=== PATIENT | female | born 1940 | race Caucasian/White ===

== ENCOUNTER 2019-06-21 09:52 | Day surgery (SDC) | payer MEDICARE ==
[~2019-06-21] VITALS: Ht 154.9 cm; Wt 57.7 kg
[~2019-06-21 09:52] MED LIST: ALEN70TA74 PO; ASPI81TA33 PO; BALANCED SALT IRRIGATION SOLUTION 500ML BAG (FOR OR EYE MACHINE) As Ordered ONE; CEFUROXIME 1MG/0.1ML INTRACAMERAL INJ As Ordered ONE; DUOVISC (0.50ML VISCOAT/0.55ML PROVISC) OPHTH KIT As Ordered ONE; FLUTISP NARES; METO50TA7 PO; OFLOXACIN 0.3 % (OCUFLOX) OPTH SOL 5ML OS ONE; PHENYLEPHRINE 2.5% OPHTH SOL 2ML OS ONE; POVIDONE-IODINE 5% OPHTH PREP SOL 30ML As Ordered ONE; PROPARACAINE 0.5% OPHTH SOL 15ML OS ONE; SIMV20TA2 PO; TROPICAMIDE 1% OPHTH SOLN 2ML OS ONE
[2019-06-21] MEDS ORDERED: MIDAZOLAM INJ 2 MG/2 ML VIAL (J2250) As Ordered ONE (09:55)
[2019-06-21] MEDS ORDERED: fentaNYL 100 MCG/2 ML INJECTION (J3010) As Ordered ONE (09:55)
[2019-06-21] MEDS ORDERED: TRYPAN BLUE 0.06 % 2.25 ML OPHTH SYR (VISIONBLUE) As Ordered ONE ×2 (11:14→11:18)
[2019-06-21] MEDS ORDERED: LIDOCAINE 2% W/EPIN INJ 20ML **PRES FREE XX ONE (11:20)
[2019-06-21] MEDS ORDERED: DUOVISC (0.50ML VISCOAT/0.55ML PROVISC) OPHTH KIT As Ordered ONE (11:28)
[2019-06-21 12:05] VITALS: BP 149/69
--- NOTE | 2019-06-25 11:24 | RO ---
DATE OF PROCEDURE: 06/21/2019 PREOPERATIVE DIAGNOSIS: 1. Hypermature visually significant nuclear sclerotic cataract left eye. POSTOPERATIVE DIAGNOSIS: 1. Hypermature visually significant nuclear sclerotic cataract left eye. PROCEDURE: 1. Cataract extraction with use of phacoemulsification and placement of intraocular lens, AU00T0 23.0 D, left eye. SURGEON: David Cordoba DO SENIOR MATERIALS ANALYST: None. ANESTHESIA: Local with monitored anesthesia care (MAC). COMPLICATIONS: None. POSTOPERATIVE CONDITION: Stable. INDICATIONS FOR SURGERY: 1. Blurred vision affecting patients activities of daily living. DESCRIPTION OF PROCEDURE: The patient was seen in the preoperative area and properly identified. The correct operative eye was identified and marked. The patient received topical anesthetic, antibiotics, and topical dilating drops. The patient was then transferred to the operating room. The correct side was re-identified, and a time-out was performed. The eye was prepped and draped in a sterile fashion. The eyelids were isolated with Tegaderm tape, and the lids were held open with an adjustable speculum. A 1.0 mm paracentesis incision was made. Intraocular preservative-free Shugarcaine was then injected into the anterior chamber. Trypan blue was placed to stain the anterior capsule. Viscoelastic was then injected into the anterior chamber through the paracentesis. Using a 2.4 mm sharp-tipped keratome, the anterior chamber was entered via a temporal clear cornea incision. A continuous curvilinear capsulorrhexis was created with Utrata forceps. Hydrodissection was performed with balanced salt solution (BSS) on a blunt cannula until the nucleus was able to rotate freely. The crystalline lens was phacoemulsified and aspirated. Irrigation/aspiration was used to remove the cortical material. Cohesive viscoelastic was placed into the capsular bag to deepen it. The implant was placed into the capsular bag and allowed to unfold. Placement was confirmed by visualizing the anterior capsulorrhexis. Irrigation/aspiration was used to remove the viscoelastic. The clear corneal incision was hydrated with BSS on a blunt cannula. The lens was well positioned. The incisions were then tested for leaks and found to be negative. The eye was then palpated for appropriate pressure and adjusted accordingly with BSS. The eyelid speculum was then carefully removed. A shield was placed over the eye. The patient tolerated the procedure well and was discharged to the recovery unit in a stable condition. [facility]ITAL[facility]andra
== END 2019-06-21 12:15 | disposition home or self-care (01) ==
LOC: M SDC 09:52
PROVIDERS: ATTEND Ophthalmology
DX: H25.12 Age-related nuclear cataract, left eye (principal); I10 Essential (primary) hypertension; I25.2 Old myocardial infarction; E78.5 Hyperlipidemia, unspecified; Z87.891 Personal history of nicotine dependence; Z79.82 Long term (current) use of aspirin; Z79.899 Other long term (current) drug therapy
CPT/HCPCS: 66984; J2250; J3010; V2632

== ENCOUNTER → 2019-08-06 | Outpatient (REF) | payer MEDICARE ==
[~2019-08-06] MED LIST changes: -BALANCED SALT IRRIGATION SOLUTION 500ML BAG (FOR OR EYE MACHINE) As Ordered ONE; -CEFUROXIME 1MG/0.1ML INTRACAMERAL INJ As Ordered ONE; -DUOVISC (0.50ML VISCOAT/0.55ML PROVISC) OPHTH KIT As Ordered ONE; -OFLOXACIN 0.3 % (OCUFLOX) OPTH SOL 5ML OS ONE; -PHENYLEPHRINE 2.5% OPHTH SOL 2ML OS ONE; -POVIDONE-IODINE 5% OPHTH PREP SOL 30ML As Ordered ONE; -PROPARACAINE 0.5% OPHTH SOL 15ML OS ONE; -TROPICAMIDE 1% OPHTH SOLN 2ML OS ONE
[2019-08-06 12:19] LABS: BASO # 0.1 10^3/uL (0.0-0.2); BASO % 0.4 % (0.0-1.0); EOS # 0.2 10^3/uL (0.0-0.5); EOS % 1.1 % (0.0-3.0); HEMATOCRIT 42.2 % (36.0-47.0); HEMOGLOBIN 12.8 g/dl (12.0-15.5); LYMPH # 1.3 10^3/uL (1.5-5.0); LYMPH % 8.6 % (24.0-44.0); MEAN CORPUSCULAR HEMOGLOBIN 26.3 pg (27.0-33.0); MEAN CORPUSCULAR HGB CONC 30.3 g/dl (32.0-36.5); MEAN CORPUSCULAR VOLUME 86.8 fl (80.0-96.0); MONO % 6.8 % (0.0-5.0); NEUTROPHILS # 12.3 10^3/uL (1.5-8.5); NEUTROPHILS % 82.6 % (36.0-66.0); PLATELET COUNT, AUTOMATED 286 10^3/uL (150-450); RED BLOOD COUNT 4.86 10^6/uL (4.00-5.40); WHITE BLOOD COUNT 14.9 10^3/uL (4.0-10.0)
[2019-08-06 12:36] LABS: ALBUMIN 3.2 GM/DL (3.2-5.2); ALT/SGPT 13 U/L (12-78); BILIRUBIN,TOTAL 0.5 MG/DL (0.2-1.0); BLOOD UREA NITROGEN 16 MG/DL (7-18); CALCIUM LEVEL 8.7 MG/DL (8.8-10.2); CARBON DIOXIDE LEVEL 27 MEQ/L (21-32); CHLORIDE LEVEL 106 MEQ/L (98-107); CREATININE FOR GFR 0.81 MG/DL (0.55-1.30); GLOMERULAR FILTRATION RATE > 60.0 (>39); GLUCOSE, FASTING 89 MG/DL (70-100); POTASSIUM SERUM 4.7 MEQ/L (3.5-5.1); SODIUM LEVEL 139 MEQ/L (136-145); TOTAL PROTEIN 6.4 GM/DL (6.4-8.2)
== END ==
LOC: M LABDRWAD 11:17
PROVIDERS: ATTEND Physician Assistant
DX: R10.814 Left lower quadrant abdominal tenderness (principal)

== ENCOUNTER → 2019-10-19 | Outpatient (CLI) | payer MEDICARE ==
[~2019-10-19] MED LIST changes: -SIMV20TA2 PO; +SIMV20TA22 PO
--- NOTE | 2019-10-19 10:33 | REP ---
Clinical: Abnormal lung findings. Technique: Axial noncontrast images from the thoracic inlet to the upper abdomen with coronal and sagittal re-formations. Comparison: None available. Findings: There is a 2.5 cm mass in the left lower lobe with spiculated margins and adjacent satellite nodules as well as 9 mm nodule in the deep left sulcus. Small area of scarring at the lingula and likely chronic atelectasis involving the right middle lobe. Evaluation for adenopathy is limited due to the lack of contrast enhancement. No effusion. No pneumothorax. Atherosclerotic changes to the thoracic aorta and coronary arteries noted without aortic aneurysm or cardiomegaly. No pericardial effusion. Tracheobronchial tree is patent. Osseous structures are intact and without focal abnormality Impression: 1. 2.5 cm mass in the left lower lobe with small adjacent satellite nodules and deep 9 mm nodule. Findings require further investigation and must be considered neoplastic unless proven otherwise. Electronically Signed by Jeffery Hansen MD 10/19/2019 10:24 A
== END ==
LOC: M RAD 09:17
PROVIDERS: ATTEND Internal Medicine Pulmonary Disease
DX: R91.8 Other nonspecific abnormal finding of lung field (principal)

== ENCOUNTER 2019-10-24 05:59 | Day surgery (SDC) | payer MEDICARE ==
[~2019-10-24] VITALS: Ht 157.5 cm; Wt 60.7 kg
[2019-10-24] MEDS ORDERED: LR 1,000 ML IV ONE (07:00)
[2019-10-24] MEDS ORDERED: ROCURONIUM BROMIDE 50 MG/5 ML VIAL As Ordered ONE (07:06)
[2019-10-24] MEDS ORDERED: LIDOCAINE 2% INJ 100 MG/5 ML SDV (FOR ANES.) As Ordered ONE (07:06)
[2019-10-24] MEDS ORDERED: SUGAMMADEX SODIUM 500 MG/5 ML VIAL (BRIDION) As Ordered ONE (07:06)
[2019-10-24] MEDS ORDERED: dexameTHASONE 4 MG/ML 1ML VIAL (J1100) As Ordered ONE (07:06)
[2019-10-24] MEDS ORDERED: PROPOFOL 200 MG/20 ML VIAL As Ordered ONE (07:06)
[2019-10-24] MEDS ORDERED: ONDANSETRON 4MG/2ML VIAL (J2405) As Ordered ONE (07:06)
[2019-10-24] MEDS ORDERED: fentaNYL 100 MCG/2 ML INJECTION (J3010) As Ordered ONE (07:07)
[2019-10-24] MEDS ORDERED: MIDAZOLAM INJ 2 MG/2 ML VIAL (J2250) As Ordered ONE (07:07)
[2019-10-24] MEDS ORDERED: EPINEPHrine 1MG/10ML SYRINGE 1.5IN As Ordered ONE (07:16)
[2019-10-24] MEDS ORDERED: LIDOCAINE VISCOUS 2% SOLN 15ML UDC As Ordered ONE (07:16)
[2019-10-24] MEDS ORDERED: CETACAINE SPRAY 5GM As Ordered ONE (07:16)
[2019-10-24] MEDS ORDERED: THROMBIN SOLN 5,000 UNITS VIAL As Ordered ONE (07:16)
[2019-10-24] MEDS ORDERED: LIDOCAINE 1% SDV INJ 30 ML VIAL As Ordered ONE (07:16)
[2019-10-24] MEDS ORDERED: ePHEDrine SULFATE 25 MG/5 ML(5MG/ML) SYRINGE As Ordered ONE (08:12)
[2019-10-24] MEDS ORDERED: PHENYLephrine HCL 500 MCG/5 ML (100MCG/ML) SYRINGE (J2370) As Ordered ONE (08:12)
[2019-10-24] MEDS ORDERED: ONDANSETRON 4MG/2ML VIAL (J2405) IV PRN (08:45)
[2019-10-24] MEDS ORDERED: LR 1,000 ML IV SCH (08:45)
[2019-10-24] MEDS ORDERED: oxyCODONE 5MG TAB PO PRN (08:45)
[2019-10-24] MEDS ORDERED: fentaNYL 100 MCG/2 ML INJECTION (J3010) IV PRN (08:45)
--- NOTE | 2019-10-24 08:57 | REP ---
Single view chest: 10/24/2019. Indication: Postprocedural assessment. Bronchoscopy. Comparison: 10/19/2019. Findings: There is no pneumothorax or significant pleural effusion. The left lower lobe mass is better demonstrated on the recent CT. The cardiac silhouette is unremarkable. Impression: Expected post procedural chest. No pneumothorax. Electronically Signed by Santos Corona DO 10/24/2019 08:49 A
--- NOTE | 2019-10-24 09:19 | RO ---
DATE OF PROCEDURE: 10/24/2019 PREOPERATIVE DIAGNOSIS: Left lower lobe lesion, abnormal chest CT. POSTPROCEDURE DIAGNOSIS: Left lower lobe lesion, abnormal chest CT. FINDINGS: Smoker's airways. PROCEDURE: Bronchoscopy with electromagnetic navigation. SURGEON: Dr. Lorenzo Mcfarlane. ANESTHESIA: General. Please refer to their records for details. SPECIMENS OBTAINED: 1. Cyto needle brush left lower lobe. 2. Transbronchial forceps biopsies left lower lobe. 3. GenCut fine needle aspiration (FNA) left lower lobe. 4. Bronchioalveolar lavage (BAL) left lower lobe. DESCRIPTION OF PROCEDURE: After informed consent was reviewed with the patient in the preoperative area, she was brought back to OR #8, which is a pre-mapped room. General anesthesia was initiated and the case was handed over to me after intubation with an 8.5 endotracheal tube. Time-out was then performed with two patient identifiers identifying correct site, correct procedure. This was also correlated with the navigational screen. The 1T-180 bronchoscope was then introduced into the endotracheal tube with the use of Cetacaine for lubrication and topical anesthesia. Airways were then examined. Trachea was midline. Vidhi was sharp. Right and left mainstem bronchi were normal. RB 1-3 was normal except for banding and pitting. There were no endobronchial lesions. RB 4 and 5 were fishmouth. Under saline administration I could open up to the RB 4, RB 5 and there were no endobronchial lesions. There are some mucus. This was suctioned. RB 6-10 was also examined without endobronchial lesion. LB 1-10 was then examined without endobronchial lesions significant banding and pitting, more prominent in the upper lobes and the lower lobes. The bronchoscope was then retracted into the endotracheal tube. The LG guide was then placed. Automatic registration was performed and confirmed. Target #1 in the left lower lobe was easily navigated to after navigation confirmation with fluoroscopy was performed. Biopsies were then taken in the form for Cyto needle brush, then transbronchial forceps biopsies with very little return. GenCut FNA was then performed. BAL was also performed with little return. After adequate sampling hemostasis was assured and the bronchoscope was removed. There were no observed complications. However, postprocedure chest x-ray is pending as the patient is in recovery MTDD
[2019-10-24 10:00] VITALS: BP 141/68
== END 2019-10-24 10:05 | disposition home or self-care (01) ==
LOC: M SDC 05:59
PROVIDERS: ATTEND Internal Medicine Pulmonary Disease
DX: R91.8 Other nonspecific abnormal finding of lung field (principal); J43.1 Panlobular emphysema; E78.5 Hyperlipidemia, unspecified; I25.2 Old myocardial infarction; F41.9 Anxiety disorder, unspecified; Z79.82 Long term (current) use of aspirin; Z87.891 Personal history of nicotine dependence; Z79.899 Other long term (current) drug therapy
CPT/HCPCS: 31623; 31624; 31627; 31628; 31629; 71045; 76000; 87102; 88104; 88173; 88305; 88341; 88342; J1100; J2250; J2370; J2405; J3010

== ENCOUNTER → 2019-12-04 | Outpatient (CLI) | payer MEDICARE ==
--- NOTE | 2019-12-04 14:09 | REP ---
PET/CT: History: Diagnosing nonspecific finding of the lung field. Comparisons: Comparison CT chest October 19, 2019. CT study shows a 2.5 cm spiculated lung nodule in the left lower lobe. TECHNIQUE: 52 minutes following the intravenous injection of a 8.53 mCi dose of F-18 FDG, three-dimensional PET scintigraphy is acquired from the skull base to the proximal thighs. Triplanar noncontrast CT scanning is acquired through the same anatomic range for attenuation correction, and image registration with scan parameters optimized to minimize radiation exposure to the patient. PET scintigraphy and CT datasets were fused and displayed on a workstation with multiplanar and projection display capability. PET/CT Findings: Head and neck soft tissues are unremarkable. The known 2.5 cm nodule in the left lower lobe is seen to be hypermetabolic. Maximum standard uptake value is 15.26. There is a new 1.2 cm ill-defined nodular density in the superior segment of the right lower lobe with discernible but non-hypermetabolic FDG accumulation, maximum standard uptake value 1.5. This was not visible on the recent prior chest CT study and is most consistent with an inflammatory etiology. No other pulmonary parenchymal nodule or hypermetabolic uptake is seen. Lobar atelectasis in the right middle lobe is again seen. No hilar or mediastinal hypermetabolic uptake is seen. In the abdomen and pelvis, there is normal hepatic, splenic, gastrointestinal, and genitourinary FDG accumulation. No abnormal adrenal uptake is seen. There is a right renal cyst. No abnormal skeletal uptake is seen. Impression: The known left lower lobe pulmonary parenchymal nodule is hypermetabolic and has suspicious morphology. There is chronic atelectasis in the right middle lobe without associated hypermetabolic uptake. There is however an inflammatory appearing somewhat nodular density in the right lower lobe which is not hypermetabolic. No evidence to suggest metastatic disease. Electronically Signed by Brennon Bradnon MD 12/04/2019 02:40 P
== END ==
LOC: M PLARAD 09:26
PROVIDERS: ATTEND Internal Medicine Pulmonary Disease
DX: R91.8 Other nonspecific abnormal finding of lung field (principal)
CPT/HCPCS: 78815; A9552

== ENCOUNTER → 2020-01-03 | Outpatient (REF) | payer MEDICARE ==
[2020-01-03 14:12] LABS: INR 0.99; PLATELET COUNT, AUTOMATED 305 10^3/uL (150-450); PROTHROMBIN TIME 12.8 SECONDS (11.8-14.0)
[2020-01-03 14:13] LABS: PARTIAL THROMBOPLASTIN TIME 34.3 SECONDS (25.0-38.4)
[2020-01-03 14:25] LABS: BLOOD UREA NITROGEN 16 MG/DL (7-18); CARBON DIOXIDE LEVEL 27 MEQ/L (21-32); CHLORIDE LEVEL 106 MEQ/L (98-107); CREATININE FOR GFR 0.74 MG/DL (0.55-1.30); GLOMERULAR FILTRATION RATE > 60.0 (>39); GLUCOSE, FASTING 78 MG/DL (70-100); SODIUM LEVEL 138 MEQ/L (136-145)
== END ==
LOC: M LAB REF 13:36
PROVIDERS: ATTEND Internal Medicine Pulmonary Disease
DX: Z01.812 Encounter for preprocedural laboratory examination (principal); J43.1 Panlobular emphysema

== ENCOUNTER 2020-01-14 07:51 | Day surgery (SDC) | payer MEDICARE ==
[~2020-01-14] VITALS: Ht 154.9 cm; Wt 62.1 kg
[~2020-01-14 07:51] MED LIST changes: +ANOR1AER IN; +LIDOCAINE 2% INJ 100 MG/5 ML SDV (FOR ANES.) As Ordered ONE; +LR 1,000 ML IV ONE; +MIDAZOLAM INJ 2 MG/2 ML VIAL (J2250) As Ordered ONE; +ONDANSETRON 4MG/2ML VIAL (J2405) As Ordered ONE; +ROCURONIUM BROMIDE 50 MG/5 ML VIAL As Ordered ONE; +SUGAMMADEX SODIUM 500 MG/5 ML VIAL (BRIDION) As Ordered ONE; +dexameTHASONE 4 MG/ML 1ML VIAL (J1100) As Ordered ONE; +ePHEDrine SULFATE 25 MG/5 ML(5MG/ML) SYRINGE As Ordered ONE; +fentaNYL 100 MCG/2 ML INJECTION (J3010) As Ordered ONE; +propofoL 200 MG/20 ML VIAL As Ordered ONE
[2020-01-14] MEDS ORDERED: CETACAINE SPRAY 5GM As Ordered ONE (09:24)
[2020-01-14] MEDS ORDERED: THROMBIN SOLN 20,000 UNITS KIT As Ordered ONE (11:25)
[2020-01-14] MEDS ORDERED: oxyCODONE 5MG TAB PO PRN (11:30)
[2020-01-14] MEDS ORDERED: ONDANSETRON 4MG/2ML VIAL (J2405) IV PRN (11:30)
[2020-01-14] MEDS ORDERED: LR 1,000 ML IV SCH (11:30)
[2020-01-14] MEDS ORDERED: HYDROMORPHONE HCL 0.5 MG/ 0.5 ML SYRINGE (J1170 PER 1) IV PRN (11:30)
[2020-01-14] MEDS ORDERED: fentaNYL 100 MCG/2 ML INJECTION (J3010) IV PRN (11:30)
[2020-01-14 11:38] LABS: APPEARANCE CLOTTED (CLEAR); COLOR RED (COLORLESS); SOURCE LEFT LOWER LOBE
--- NOTE | 2020-01-14 12:29 | REP ---
PORTABLE CHEST X-RAY: Single view. HISTORY: Status post bronchoscopy. COMPARISON STUDY: October 24, 2019. FINDINGS: There is an infiltrate like opacity in the left lower lobe distribution predominately behind the heart consistent with atelectasis and/or some localized parenchymal hemorrhage. There is some discoid atelectasis in the left base along the left heart border. There is no evidence of pneumothorax on either side. Heart is not enlarged. IMPRESSION: No evidence of pneumothorax. Infiltrate pattern left base question atelectasis and/or hemorrhage. Electronically Signed by Brennon Brandon MD 01/14/2020 01:07 P
[2020-01-14 12:55] VITALS: BP 142/68
--- NOTE | 2020-01-16 13:24 | ROOR ---
Patient Name: Sheela Lambert Procedure Date: 01/14/2020 9:38 AM Date of : 1940 Admit Type: Outpatient Age: 79 Note Status: Finalized Attending MD: Lizbeth Ramírez MD Procedure: Bronchoscopy Indications: Left lower lobe nodule Providers: Lizbeth Ramírez MD (Doctor) Referring MD: 1. No Referring Physician 1. No Referring Physician, Admin. (Referring MD) Requesting Physician: Medicines: General Anesthesia, Cetacaine topical, Epinephrine 1 mg/10 mL topical 2 mL, Thrombin 2 units Complications: Moderate bleeding Procedure: Pre-Anesthesia Assessment: - Prior to the procedure, a History and Physical was performed, and patient medications and allergies were reviewed. The patient's tolerance of previous anesthesia was also reviewed. The risks and benefits of the procedure and the sedation options and risks were discussed with the patient. All questions were answered, and informed consent was obtained. Prior Anticoagulants: The patient has taken aspirin, last dose was day of procedure. ASA Grade Assessment: III - A patient with severe systemic disease. After reviewing the risks and benefits, the patient was deemed in satisfactory condition to undergo the procedure. The Bronchoscope was introduced through the mouth, via the endotracheal tube (the patient was intubated for the procedure) and advanced to the tracheobronchial tree of both lungs. The procedure was accomplished without difficulty. The patient tolerated the procedure well. Findings: The cecil is sharp. The entire tracheobronchial tree was examined to at least the first subsegmental level. Bronchial anatomy was normal; there are no endobronchial lesions. The bronchial mucosa showed some banding and pitting in the bronchi bilaterally. In the right middle lobe there was thick mucous plugs with friable and edematous mucosa. Electromagnetic navigation bronchoscopy utilizing the [employer] system with iLogic upgrade was performed. The CT scan was used for planning purposes. A virtual bronchoscopic image was generated using the planning software and the cecil, left main bronchus cecil, left lower lobe basilar segment, right upper lobe, right middle lobe and right lower lobe basilar segment registration points were marked on the virtual image. The target in the left lower lobe was marked. A nodule 2.1 cm in size was found and a pathway was created. After a complete airway exam, the locatable guide/extended working channel was inserted and an automatic registration was performed by advancing the scope through the cecil, right upper lobe, right middle lobe and right lower lobe basilar segment. The navigation phase was then begun to locate the target lesion(s). Positioning centrally (in relation to the lesion) was confirmed using the Olympus radial probe US catheter. The locatable guide was removed from the extended working channel. Fluoroscopy guided transbronchial brushings of a nodule were obtained in the left lower lobe with a needle brush and sent for routine cytology. Transbronchial brushing technique was selected because the sampling site was not visible endoscopically. Transbronchial needle aspirations of a nodule were performed in the left lower lobe GenCut and sent for routine cytology. The procedure was guided by fluoroscopy. Transbronchial needle aspiration technique was selected because the sampling site was not accessible using standard endoscopic (bronchoscopic) techniques. Transbronchial biopsies of a nodule were performed in the left lower lobe using forceps and sent for histopathology examination. The procedure was guided by fluoroscopy. Transbronchial biopsy technique was selected because the sampling site was not visible endoscopically. Bronchoalveolar lavage was performed in the left lower lobe of the lung and sent for cell count, bacterial culture, and fungal & AFB analysis and cytology. The return was bloody. Patient had some bleeding from left lower lobe post transbronchial needle aspiration. Estimated blood loss: 200ml, which was treated with topical epinephrine 1ml x2, cold saline and 2 mls of thrombin 5000units. Impression: - Left lower lobe nodule - Electromagnetic navigation bronchoscopy was performed. - Transbronchial brushings were obtained. - A transbronchial needle aspiration was performed. - Transbronchial lung biopsies were performed. - Bronchoalveolar lavage was performed. - Bleeding noted from left lower lobe post biopsy and fine needle aspiration. Topical Thrombin and Epinephrine 1:10,000 2 mL administered. The bleeding stopped. Recommendation: - Follow up with bronchoscopist as previously scheduled. Attending Participation: I personally performed the entire procedure. Lizbeth Ramírez MD 01/16/2020 1:23:50 PM Number of Addenda: 0 Note Initiated On: 01/14/2020 9:38 AM
== END 2020-01-14 12:57 | disposition home or self-care (01) ==
LOC: M SDC 07:51
PROVIDERS: ATTEND Internal Medicine Pulmonary Disease
DX: J43.1 Panlobular emphysema (principal); I25.10 Atherosclerotic heart disease of native coronary artery without angina pectoris; I10 Essential (primary) hypertension; I25.2 Old myocardial infarction; M81.0 Age-related osteoporosis without current pathological fracture; Z79.82 Long term (current) use of aspirin; E78.5 Hyperlipidemia, unspecified; Z87.891 Personal history of nicotine dependence; Z79.899 Other long term (current) drug therapy
CPT/HCPCS: 31623; 31624; 31627; 31628; 31629; 71045; 76000; 87070; 87102; 87116; 87205; 87206; 88104; 88108; 88173; 88305; 88312; 88313; J1100; J2250; J2405; J3010

== ENCOUNTER → 2020-09-26 | Outpatient (CLI) | payer MEDICARE ==
[~2020-09-26] MED LIST changes: -LIDOCAINE 2% INJ 100 MG/5 ML SDV (FOR ANES.) As Ordered ONE; -LR 1,000 ML IV ONE; -MIDAZOLAM INJ 2 MG/2 ML VIAL (J2250) As Ordered ONE; -ONDANSETRON 4MG/2ML VIAL (J2405) As Ordered ONE; -ROCURONIUM BROMIDE 50 MG/5 ML VIAL As Ordered ONE; -SUGAMMADEX SODIUM 500 MG/5 ML VIAL (BRIDION) As Ordered ONE; -dexameTHASONE 4 MG/ML 1ML VIAL (J1100) As Ordered ONE; -ePHEDrine SULFATE 25 MG/5 ML(5MG/ML) SYRINGE As Ordered ONE; -fentaNYL 100 MCG/2 ML INJECTION (J3010) As Ordered ONE; -propofoL 200 MG/20 ML VIAL As Ordered ONE
--- NOTE | 2020-09-26 11:46 | REP ---
INDICATION: LEFT HIP PAIN. . COMPARISON: None. TECHNIQUE: AP and frogleg views. FINDINGS: The left femoral head is smooth and rounded. There is mild joint space narrowing and superior acetabular spurring consistent with left hip arthropathy. No erosive changes seen. There is some diffuse osteopenia. No fracture is seen. Mild sclerosis is seen in the SI joint on the left and there is degenerative spondylosis visible at the edge of the field of view in the lower lumbar spine. IMPRESSION: Joint space narrowing consistent with arthropathy left hip. No fracture or erosive changes. Diffuse osteopenia. <Electronically signed by Rashel Brandon > 09/26/20 [id number]
== END ==
LOC: M ADAMS 08:55
PROVIDERS: ATTEND Physician Assistant
DX: M25.552 Pain in left hip (principal); M85.852 Other specified disorders of bone density and structure, left thigh; M47.816 Spondylosis without myelopathy or radiculopathy, lumbar region

== ENCOUNTER → 2020-10-30 | Outpatient (REF) | payer MEDICARE ==
[2020-10-30 17:52] LABS: C REACTIVE PROTEIN QUANTITATIV 3.25 MG/DL (0.00-0.30); URIC ACID 3.3 MG/DL (2.6-6.0)
[2020-10-31 13:40] LABS: RHEUMATOID FACTOR QUANT < 10.0 IU/ML (<15.0)
[2020-11-02 20:06] LABS: Lyme Disease IgG Ab 18 kDa Ban Absent (.); Lyme Disease IgG Ab 23 kDa Ban Absent (.); Lyme Disease IgG Ab 28 kDa Ban Absent (.); Lyme Disease IgG Ab 30 kDa Ban Absent (.); Lyme Disease IgG Ab 39 kDa Ban Absent (.); Lyme Disease IgG Ab 41 kDa Ban Present (.); Lyme Disease IgG Ab 45 kDa Ban Absent (.); Lyme Disease IgG Ab 58 kDa Ban Absent (.); Lyme Disease IgG Ab 66 kDa Ban Absent (.); Lyme Disease IgG Ab 93 kDa Ban Absent (.); Lyme Disease IgG West Blot Int Negative (.); Lyme Disease IgG/IgM Antibodie <0.91 ISR (0.00-0.90); Lyme Disease IgM Ab 23 kDa Ban Absent (.); Lyme Disease IgM Ab 39 kDa Ban Absent (.); Lyme Disease IgM Ab 41 kDa Ban Absent (.); Lyme Disease IgM Ab Quantitati 3.51 index (0.00-0.79); Lyme Disease IgM West Blot Int Negative (.)
== END ==
LOC: M LAB REF 16:41
PROVIDERS: ATTEND Internal Medicine
DX: M81.0 Age-related osteoporosis without current pathological fracture (principal)

== ENCOUNTER → 2020-12-01 | Outpatient (REF) | payer MEDICARE ==
[~2020-12-01] MED LIST changes: -ALEN70TA74 PO; +ALEN70TA82 PO
== END ==
LOC: M LAB REF 16:22
PROVIDERS: ATTEND Internal Medicine
DX: R70.0 Elevated erythrocyte sedimentation rate (principal)

== ENCOUNTER → 2021-01-21 | Outpatient (REF) | payer MEDICARE ==
[2021-01-21 17:35] LABS: C REACTIVE PROTEIN QUANTITATIV 0.58 MG/DL (0.00-0.30); RHEUMATOID FACTOR QUANT < 10.0 IU/ML (<15.0)
== END ==
LOC: M LAB REF 16:10
PROVIDERS: ATTEND Internal Medicine
DX: M06.4 Inflammatory polyarthropathy (principal); R70.0 Elevated erythrocyte sedimentation rate

== ENCOUNTER → 2021-03-20 | Outpatient (REF) | payer MEDICARE ==
[2021-03-20 13:08] LABS: BASO % 0.6 % (0.0-1.0); EOS # 0.1 10^3/uL (0.0-0.5); EOS % 0.9 % (0.0-3.0); HEMOGLOBIN 13.7 g/dl (12.0-15.5); LYMPH # 1.5 10^3/uL (1.5-5.0); LYMPH % 22.8 % (24.0-44.0); MEAN CORPUSCULAR HEMOGLOBIN 28.4 pg (27.0-33.0); MEAN CORPUSCULAR HGB CONC 31.1 g/dl (32.0-36.5); MEAN CORPUSCULAR VOLUME 91.1 fl (80.0-96.0); MONO # 0.5 10^3/uL (0.0-0.8); MONO % 7.8 % (2.0-8.0); NEUTROPHILS # 4.4 10^3/uL (1.5-8.5); NEUTROPHILS % 67.6 % (36.0-66.0); PLATELET COUNT, AUTOMATED 267 10^3/uL (150-450); RED BLOOD COUNT 4.83 10^6/uL (4.00-5.40); WHITE BLOOD COUNT 6.4 10^3/uL (4.0-10.0)
[2021-03-20 13:34] LABS: ALBUMIN 3.5 GM/DL (3.2-5.2); ALT/SGPT 14 U/L (12-78); BILIRUBIN,TOTAL 0.3 MG/DL (0.2-1.0); BLOOD UREA NITROGEN 10 MG/DL (7-18); C REACTIVE PROTEIN QUANTITATIV 3.64 MG/DL (0.00-0.30); CALCIUM LEVEL 9.2 MG/DL (8.8-10.2); CARBON DIOXIDE LEVEL 29 MEQ/L (21-32); CHLORIDE LEVEL 109 MEQ/L (98-107); CREATININE FOR GFR 0.62 MG/DL (0.55-1.30); GLOMERULAR FILTRATION RATE > 60.0 (>39); GLUCOSE, FASTING 83 MG/DL (70-100); SODIUM LEVEL 142 MEQ/L (136-145); TOTAL PROTEIN 6.7 GM/DL (6.4-8.2)
[2021-03-20 13:51] LABS: HEPATITIS B SURFACE ANTIGEN NEGATIVE (NEGATIVE)
[2021-03-20 14:19] LABS: HEPATITIS C VIRUS ABY INDEX < 0.0 INDEX (<0.8)
[2021-03-20 19:50] LABS: ERYTHROCYTE SEDIMENTATION RATE 20 mm/hr (0-30)
[2021-03-23 13:07] LABS: ANA (HEP2) Negative (.); ANTI DS-DNA AB Negative (Negative); HEPATITIS B CORE ANTIBODY IGG Negative (Negative); RNP ANTIBODY < 0.2 AI (0.0-0.9); SMITHS ANTIBODY < 0.2 AI (0.0-0.9); SSA SJOGRENS A <0.2 AI (0.0-0.9); SSB SJOGRENS B <0.2 AI (0.0-0.9)
== END ==
LOC: M SFHCRHEU 11:09 → M SFHCADAM 11:13
PROVIDERS: ATTEND Internal Medicine Rheumatology
DX: M06.09 Rheumatoid arthritis without rheumatoid factor, multiple sites (principal)

== ENCOUNTER → 2021-03-20 | Outpatient (CLI) | payer MEDICARE ==
--- NOTE | 2021-03-20 13:17 | REP ---
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 COMPARISON: Comparison right hand radiographs are from October 31, 2020.. TECHNIQUE: Four views of each hand, total of 8 views. FINDINGS: Four views of the right hand demonstrate diffuse osteopenia. There is advanced osteoarthritic narrowing and sclerosis and spur formation at the 1st FDC joint. This is unchanged. Joint space narrowing is seen at the the MCP joints of the 2nd and 3rd and 4th digits and the PIP joints of the ring and small finger. There is joint space narrowing of the DIP joints of the fingers. Some juxta-articular osteoporosis is noted. There is mild spurring at the DIP joints of the index and long finger. No erosive changes seen. Spurring is seen at the IP joint of the thumb. These findings are unchanged radiographically from the October 31, 2020 prior study of the right hand. Four views of the left hand demonstrates similar findings. There is diffuse osteopenia. Advanced osteoarthritis at the 1st carpometacarpal and at the navicular multangular articulations is seen. There is a distal radioulnar joint osteoarthritic spurring and periarticular soft tissue calcification is seen adjacent to the distal radioulnar articulation on the left. 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 There is mild spurring at the DIP joints of the index and long and ring finger. IP joint spurring is seen at the thumb. No acute erosive changes seen.. No opaque foreign body noted. IMPRESSION: Diffuse osteopenia and juxta-articular osteopenia. Osteoarthritic changes as noted above. No acute erosive change.. <Electronically signed by Rashel Brandon > 03/20/21 0810
--- NOTE | 2021-03-20 13:19 | REP ---
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 COMPARISON: None. TECHNIQUE: Bilateral foot series: 4 on each side, total of 8 views. FINDINGS: Four views of the right foot demonstrate mild diffuse osteopenia. There is a large plantar and small Achilles calcaneal spur. No erosive changes are seen. Joint spaces are preserved.. Four views of the left foot show diffuse osteopenia. There is a bone island in the distal tibia. There is Achilles and plantar calcaneal spurring on the left. Some tendon insertion spurring is seen proximal end of the 5th metatarsal. An os peroneum is seen. No acute erosive changes seen.. IMPRESSION: Diffuse osteopenia. Heel spurs.. <Electronically signed by Rashel Brandon > 03/20/21 [id number]
== END ==
LOC: M ADAMS 11:10
PROVIDERS: ATTEND Internal Medicine Rheumatology
DX: M06.09 Rheumatoid arthritis without rheumatoid factor, multiple sites (principal); M77.31 Calcaneal spur, right foot; M77.32 Calcaneal spur, left foot; M85.871 Other specified disorders of bone density and structure, right ankle and foot; M85.872 Other specified disorders of bone density and structure, left ankle and foot; M85.841 Other specified disorders of bone density and structure, right hand; M85.842 Other specified disorders of bone density and structure, left hand; M19.041 Primary osteoarthritis, right hand; M19.042 Primary osteoarthritis, left hand; M77.8 Other enthesopathies, not elsewhere classified

== ENCOUNTER → 2021-08-26 | Outpatient (REF) | payer MEDICARE | LOC: M LAB REF 17:55 | PROVIDERS: ATTEND Internal Medicine | DX: M06.9 Rheumatoid arthritis, unspecified (principal) ==

== ENCOUNTER → 2021-12-11 | Outpatient (REF) | payer MEDICARE | LOC: M LAB REF 11:06 | PROVIDERS: ATTEND Internal Medicine | DX: M06.9 Rheumatoid arthritis, unspecified (principal) ==

== ENCOUNTER → 2021-12-15 | Outpatient (CLI) | payer MEDICARE ==
[2021-12-15 12:08] LABS: BACTERIA, URINE AUTO 1+ (NEGATIVE); RBC, URINE AUTO 1 /HPF (0-3); SQUAMOUS EPITHELIAL CELL UR AU 0 /HPF (0-6); WBC, URINE AUTO 50 /HPF (0-3)
== END ==
LOC: M WHC 07:40
PROVIDERS: ATTEND Internal Medicine
DX: M81.8 Other osteoporosis without current pathological fracture (principal); N28.1 Cyst of kidney, acquired; N28.89 Other specified disorders of kidney and ureter; M85.851 Other specified disorders of bone density and structure, right thigh; M85.852 Other specified disorders of bone density and structure, left thigh

== ENCOUNTER → 2022-06-10 | Outpatient (REF) | payer MEDICARE | LOC: M LAB REF 12:08 | PROVIDERS: ATTEND Internal Medicine | DX: M06.9 Rheumatoid arthritis, unspecified (principal) ==

== ENCOUNTER → 2022-12-14 | Outpatient (REF) | payer MEDICARE | LOC: M LAB REF 12:36 | PROVIDERS: ATTEND Internal Medicine | DX: M06.9 Rheumatoid arthritis, unspecified (principal) ==

== ENCOUNTER → 2023-03-16 | Outpatient (REF) | payer MEDICARE ==
[~2023-03-16] MED LIST changes: +BACTDSTA PO; +CHLO125TA PO; +FLUT50SP17 NARES; -FLUTISP NARES; +LISI40TA4 PO; +METO1TAB33 PO
== END ==
LOC: M LAB REF 12:08
PROVIDERS: ATTEND Nurse Practitioner Family
DX: N39.0 Urinary tract infection, site not specified (principal)

== ENCOUNTER 2023-03-19 21:12 | Inpatient (IN) | payer MEDICARE ==
[~2023-03-19] VITALS: Ht 154.9 cm; Wt 62.9 kg
[~2023-03-19 21:12] MED LIST changes: -BACTDSTA PO; -CHLO125TA PO; -LISI40TA4 PO; -METO1TAB33 PO
[2023-03-19] MEDS ORDERED: METOPROLOL 5 MG/5 ML VIAL IV PRN (22:20)
[2023-03-19] MEDS ORDERED: NS 1,720 ML in IV 1 EA IV ONE (22:20)
[2023-03-19 22:30] LABS: BASO # 0.1 10^3/uL (0.0-0.2); BASO % 0.2 % (0.0-1.0); EOS % 0.1 % (0.0-3.0); HEMATOCRIT 36.1 % (36.0-47.0); HEMOGLOBIN 11.4 g/dl (12.0-15.5); LYMPH # 1.3 10^3/uL (1.5-5.0); LYMPH % 4.8 % (24.0-44.0); MEAN CORPUSCULAR HEMOGLOBIN 27.7 pg (27.0-33.0); MEAN CORPUSCULAR HGB CONC 31.6 g/dl (32.0-36.5); MEAN CORPUSCULAR VOLUME 87.6 fl (80.0-96.0); MONO % 3.9 % (2.0-8.0); NEUTROPHILS # 23.6 10^3/uL (1.5-8.5); NEUTROPHILS % 88.7 % (36.0-66.0); PLATELET COUNT, AUTOMATED 616 10^3/uL (150-450); RED BLOOD COUNT 4.12 10^6/uL (4.00-5.40); WHITE BLOOD COUNT 26.6 10^3/uL (4.0-10.0)
[2023-03-19 22:41] LABS: INR 1.34; PROTHROMBIN TIME 16.8 SECONDS (12.5-14.5)
[2023-03-19 23:05] LABS: ALBUMIN 2.5 G/DL (3.2-5.2); BILIRUBIN,DIRECT 0.1 MG/DL (<0.4); BILIRUBIN,TOTAL 0.3 MG/DL (0.3-1.2); CALCIUM LEVEL 8.1 MG/DL (8.3-10.6); CK-MB VALUE MASS 1.3 NG/ML (<3.6); CREATININE FOR GFR 2.38 MG/DL (0.55-1.30); GLOMERULAR FILTRATION RATE 20.8 (>32); POTASSIUM SERUM 3.2 MMOL/L (3.5-5.1); TOTAL PROTEIN 6.7 G/DL (5.7-8.2)
[2023-03-19 23:11] LABS: MB/CK RELATIVE INDEX 1.6 (< OR =4)
[2023-03-19 23:58] LABS: CK-MB VALUE MASS 1.7 NG/ML (<3.6)
[2023-03-20] VITALS (8 sets, daily range): BP systolic 107–137; BP diastolic 56–71
[2023-03-20] MEDS ORDERED: PIPERACILLIN/TAZOBACTAM SOD 4.5 GM in D5W MINI-BAG PLUS 50 ML IV ONE ×2
[2023-03-20 00:04] LABS: MB/CK RELATIVE INDEX 2.23 (< OR =4)
[2023-03-20] MEDS ORDERED: DIGOXIN INJ 0.5 MG/2 ML AMP IV ONE (00:30)
[2023-03-20] MEDS ORDERED: NS 1,000 ML IV ONE (01:55)
[2023-03-20] MEDS ORDERED: HEPARIN SOD (PORCINE) 5000UNITS/ML 1ML VIAL/SYRINGE IV PRN (02:05)
[2023-03-20] MEDS: NS 1,000 ML IV SCH ×2 (02:09→17:15)
[2023-03-20] MEDS: KCL 10MEQ/100ML SWI (KRUN) 10 MEQ in IV 1 EA IV SCH ×4 (02:19→06:16)
[2023-03-20] MEDS ORDERED: METO1TAB33 PO (02:43)
[2023-03-20] MEDS ORDERED: CHLO125TA PO (02:43)
[2023-03-20] MEDS ORDERED: LISI40TA4 PO (02:43)
[2023-03-20] MEDS ORDERED: BACTDSTA PO (02:44)
[2023-03-20] MEDS ORDERED: HOME MED LIST COMPLETE! XX SCH (02:45)
[2023-03-20 02:48] LABS: HEMATOCRIT 30.4 % (36.0-47.0); HEMOGLOBIN 9.7 g/dl (12.0-15.5); MEAN CORPUSCULAR HEMOGLOBIN 28.3 pg (27.0-33.0); MEAN CORPUSCULAR HGB CONC 31.9 g/dl (32.0-36.5); MEAN CORPUSCULAR VOLUME 88.6 fl (80.0-96.0); RED BLOOD COUNT 3.43 10^6/uL (4.00-5.40); WHITE BLOOD COUNT 18.4 10^3/uL (4.0-10.0)
[2023-03-20 02:48] LABS: VENOUS BASE EXCESS -3.3 (-2.0-2.0); VENOUS HCO3 21.4 MMOL/L (23.0-27.0); VENOUS O2 SATURATION 40.6 % (60.0-80.0); VENOUS PARTIAL PRESSURE CO2 37.4 mmHg (38.0-50.0); VENOUS PARTIAL PRESSURE O2 24.1 mmHg (30.0-50.0); VENOUS PH 7.376 UNITS (7.330-7.430); VENOUS STANDARD HCO3 20.7 MMOL/L; VENOUS TOTAL CO2 22.6 MMOL/L (24.0-28.0)
[2023-03-20 02:54] LABS: PLATELET COUNT, AUTOMATED 414 10^3/uL (150-450)
[2023-03-20] MEDS ORDERED: ATORVASTATIN 20 MG TAB PO ONE ×2 (03:00→05:00)
[2023-03-20 03:31] LABS: CK-MB VALUE MASS 3.8 NG/ML (<3.6); MAGNESIUM LEVEL 2.2 MG/DL (1.8-2.4)
[2023-03-20 03:33] LABS: MB/CK RELATIVE INDEX 4.04 (< OR =4)
[2023-03-20] MEDS: HEPARIN DRIP 25,000 UNITS in IV 1 EA IV SCH (04:14)
[2023-03-20] MEDS ORDERED: METOPROLOL 5 MG/5 ML VIAL IV STA (04:28)
[2023-03-20 06:54] LABS: CK-MB VALUE MASS 4.8 NG/ML (<3.6)
[2023-03-20 06:58] LABS: MB/CK RELATIVE INDEX 3.8 (< OR =4)
[2023-03-20 07:48] LABS: CK-MB VALUE MASS 6.2 NG/ML (<3.6)
[2023-03-20 07:50] LABS: MB/CK RELATIVE INDEX 5.68 (< OR =4)
[2023-03-20 07:52] LABS: BILIRUBIN,TOTAL 0.3 MG/DL (0.3-1.2); CALCIUM LEVEL 6.9 MG/DL (8.3-10.6); CREATININE FOR GFR 1.8 MG/DL (0.55-1.30); GLOMERULAR FILTRATION RATE 28.7 (>32); POTASSIUM SERUM 3.6 MMOL/L (3.5-5.1); TOTAL PROTEIN 5.5 G/DL (5.7-8.2)
[2023-03-20] MEDS ORDERED: MORPHINE 2 MG/ML 1ML VIAL IV PRN (08:40)
[2023-03-20] MEDS: MORPHINE 2 MG/ML 1ML VIAL IV PRN (08:54)
[2023-03-20] MEDS: PIPERACILLIN/TAZOBACTAM SOD 2.25 GM in D5W MINI-BAG PLUS 50 ML IV SCH ×2 (12:44→17:16)
[2023-03-20 18:36] LABS: CK-MB VALUE MASS 2.9 NG/ML (<3.6); MB/CK RELATIVE INDEX 3.49 (< OR =4)
[2023-03-20] MEDS: SALMETEROL DISKUS 50MCG INHALER (SEREVENT) INH SCH (20:00)
[2023-03-20] MEDS: ASPIRIN 81MG ENTERIC TABLET PO SCH (20:17)
[2023-03-20] MEDS ORDERED: METOPROLOL SUCC (TopROL XL) 100MG *XL* TAB PO SCH (21:00)
[2023-03-21] VITALS (7 sets, daily range): BP systolic 110–121; BP diastolic 60–67
[2023-03-21] MEDS ORDERED: METOPROLOL 5 MG/5 ML VIAL IV PRN (00:40)
[2023-03-21 00:59] LABS: INR 1.24; PROTHROMBIN TIME 15.9 SECONDS (12.5-14.5)
[2023-03-21] MEDS: PIPERACILLIN/TAZOBACTAM SOD 2.25 GM in D5W MINI-BAG PLUS 50 ML IV SCH ×4 (01:00→18:49)
[2023-03-21 01:27] LABS: PARTIAL THROMBOPLASTIN TIME 143.4 SECONDS (24.8-34.2)
[2023-03-21] MEDS: NS 1,000 ML IV SCH ×3 (03:49→20:21)
[2023-03-21 04:07] LABS: HEMATOCRIT 30.1 % (36.0-47.0); HEMOGLOBIN 9.5 g/dl (12.0-15.5); MEAN CORPUSCULAR HGB CONC 31.6 g/dl (32.0-36.5); MEAN CORPUSCULAR VOLUME 88.8 fl (80.0-96.0); PLATELET COUNT, AUTOMATED 429 10^3/uL (150-450); RED BLOOD COUNT 3.39 10^6/uL (4.00-5.40); WHITE BLOOD COUNT 15.3 10^3/uL (4.0-10.0)
[2023-03-21] MEDS: METOPROLOL 5 MG/5 ML VIAL IV SCH ×2 (04:15→04:20)
[2023-03-21 04:31] LABS: C REACTIVE PROTEIN QUANTITATIV 23.4 MG/DL (<1.0)
[2023-03-21] MEDS: HEPARIN DRIP 25,000 UNITS in IV 1 EA IV SCH (04:43)
[2023-03-21 04:55] LABS: ALBUMIN 1.6 G/DL (3.2-5.2); BILIRUBIN,TOTAL 0.4 MG/DL (0.3-1.2); CALCIUM LEVEL 7.2 MG/DL (8.3-10.6); CREATININE FOR GFR 1.16 MG/DL (0.55-1.30); GLOMERULAR FILTRATION RATE 47.7 (>32); POTASSIUM SERUM 3.3 MMOL/L (3.5-5.1); TOTAL PROTEIN 4.9 G/DL (5.7-8.2)
[2023-03-21] MEDS: KCL 10MEQ/100ML SWI (KRUN) 10 MEQ in IV 1 EA IV SCH ×4 (05:22→10:24)
[2023-03-21] MEDS: TIOTROPIUM INHALER/CAPSULE (SPIRIVA) INH SCH (08:00)
[2023-03-21] MEDS: SALMETEROL DISKUS 50MCG INHALER (SEREVENT) INH SCH ×2 (08:00→19:26)
[2023-03-21 08:13] LABS: CK-MB VALUE MASS 1.4 NG/ML (<3.6); MAGNESIUM LEVEL 2.2 MG/DL (1.8-2.4); MB/CK RELATIVE INDEX 2.22 (< OR =4)
[2023-03-21] MEDS: ATORVASTATIN 20 MG TAB PO SCH (09:13)
[2023-03-21] MEDS: LACTOBACILLUS ACIDOPHILUS CAP (BACID) PO SCH ×2 (09:13→18:48)
[2023-03-21] MEDS: METOPROLOL TART 25 MG TABLET PO SCH (18:49)
[2023-03-21 19:11] LABS: INR 1.17; PROTHROMBIN TIME 15.1 SECONDS (12.5-14.5)
[2023-03-21 19:13] LABS: PARTIAL THROMBOPLASTIN TIME 119.3 SECONDS (24.8-34.2)
[2023-03-21] MEDS: ASPIRIN 81MG ENTERIC TABLET PO SCH (20:21)
[2023-03-22] MEDS: PIPERACILLIN/TAZOBACTAM SOD 2.25 GM in D5W MINI-BAG PLUS 50 ML IV SCH ×3 (01:23→11:49)
[2023-03-22] MEDS: METOPROLOL TART 25 MG TABLET PO SCH ×3 (01:23→11:48)
[2023-03-22 02:31] LABS: INR 1.22; PROTHROMBIN TIME 15.7 SECONDS (12.5-14.5)
[2023-03-22 02:37] LABS: PARTIAL THROMBOPLASTIN TIME 156.3 SECONDS (24.8-34.2)
[2023-03-22 03:47] VITALS: BP 124/79
[2023-03-22] MEDS: NS 1,000 ML IV SCH ×2 (06:15→16:37)
[2023-03-22] MEDS: LACTOBACILLUS ACIDOPHILUS CAP (BACID) PO SCH ×2 (07:41→18:03)
[2023-03-22] MEDS: ATORVASTATIN 20 MG TAB PO SCH (07:42)
[2023-03-22] MEDS: SALMETEROL DISKUS 50MCG INHALER (SEREVENT) INH SCH ×2 (08:00→20:00)
[2023-03-22] MEDS: TIOTROPIUM INHALER/CAPSULE (SPIRIVA) INH SCH (08:00)
[2023-03-22 08:01] LABS: HEMATOCRIT 28.8 % (36.0-47.0); HEMOGLOBIN 9.2 g/dl (12.0-15.5); MEAN CORPUSCULAR HEMOGLOBIN 28.2 pg (27.0-33.0); MEAN CORPUSCULAR HGB CONC 31.9 g/dl (32.0-36.5); MEAN CORPUSCULAR VOLUME 88.3 fl (80.0-96.0); PLATELET COUNT, AUTOMATED 430 10^3/uL (150-450); RED BLOOD COUNT 3.26 10^6/uL (4.00-5.40); WHITE BLOOD COUNT 14.3 10^3/uL (4.0-10.0)
[2023-03-22 08:18] VITALS: BP 121/82
[2023-03-22 08:27] LABS: CPK CREATINE PHOSPHOKINASE 46 U/L (34-145)
[2023-03-22] MEDS ORDERED: METOPROLOL TART 12.5 MG PER 1/2 TAB PO ONE (08:55)
[2023-03-22 08:58] LABS: ALBUMIN 1.6 G/DL (3.2-5.2); ALKALINE PHOSPHATASE 161 U/L (46-116); ALT/SGPT 37 U/L (7.0-40); AST/SGOT 56 U/L (<34); BILIRUBIN,TOTAL 0.5 MG/DL (0.3-1.2); BLOOD UREA NITROGEN 10 MG/DL (9-23); CARBON DIOXIDE LEVEL 21 MMOL/L (20-31); CHLORIDE LEVEL 111 MMOL/L (98-107); CK-MB VALUE MASS 1.9 NG/ML (<3.6); CREATININE FOR GFR 0.87 MG/DL (0.55-1.30); GLOMERULAR FILTRATION RATE > 60.0 (>32); GLUCOSE, FASTING 90 MG/DL (74-106); MB/CK RELATIVE INDEX 4.13 (< OR =4); POTASSIUM SERUM 3.5 MMOL/L (3.5-5.1); SODIUM LEVEL 137 MMOL/L (136-145)
[2023-03-22 11:49] VITALS: BP 128/72
[2023-03-22] MEDS: HEPARIN DRIP 25,000 UNITS in IV 1 EA IV SCH (11:54)
[2023-03-22] MEDS ORDERED: METOPROLOL TART 25 MG TABLET PO ONE (12:30)
[2023-03-22] MEDS: GASTROGRAFIN SOLUTION 30ML PO SCH ×2 (13:12→14:07)
[2023-03-22] MEDS ORDERED: ISOVUE-370 76% 100ML VIAL As Ordered ONE (15:18)
[2023-03-22 16:46] VITALS: BP 128/79
[2023-03-22] MEDS: PIPERACILLIN/TAZOBACTAM SOD 3.375 GM in D5W MINI-BAG PLUS 50 ML IV SCH (18:03)
[2023-03-22 20:27] VITALS: BP 129/82
[2023-03-22] MEDS: ASPIRIN 81MG ENTERIC TABLET PO SCH (22:12)
[2023-03-22] MEDS: METOPROLOL TART 50 MG TAB PO SCH (22:12)
[2023-03-22 23:37] VITALS: BP 107/57
[2023-03-23] MEDS: PIPERACILLIN/TAZOBACTAM SOD 3.375 GM in D5W MINI-BAG PLUS 50 ML IV SCH ×5 (00:17→23:08)
[2023-03-23] MEDS: D5W/LR 1,000 ML IV SCH ×3 (03:09→22:31)
[2023-03-23 03:50] VITALS: BP 120/58
[2023-03-23] MEDS: METOPROLOL TART 50 MG TAB PO SCH ×3 (05:54→20:25)
[2023-03-23 06:18] LABS: HEMATOCRIT 28.7 % (36.0-47.0); HEMOGLOBIN 8.8 g/dl (12.0-15.5); MEAN CORPUSCULAR HEMOGLOBIN 27.8 pg (27.0-33.0); MEAN CORPUSCULAR HGB CONC 30.7 g/dl (32.0-36.5); MEAN CORPUSCULAR VOLUME 90.8 fl (80.0-96.0); PLATELET COUNT, AUTOMATED 406 10^3/uL (150-450); RED BLOOD COUNT 3.16 10^6/uL (4.00-5.40)
[2023-03-23 06:59] LABS: ALBUMIN 1.4 G/DL (3.2-5.2); ALKALINE PHOSPHATASE 167 U/L (46-116); ALT/SGPT 36 U/L (7.0-40); AST/SGOT 56 U/L (<34); BILIRUBIN,TOTAL 0.4 MG/DL (0.3-1.2); BLOOD UREA NITROGEN 6 MG/DL (9-23); CARBON DIOXIDE LEVEL 23 MMOL/L (20-31); CHLORIDE LEVEL 108 MMOL/L (98-107); CREATININE FOR GFR 0.86 MG/DL (0.55-1.30); GLOMERULAR FILTRATION RATE > 60.0 (>32); GLUCOSE, FASTING 112 MG/DL (74-106); POTASSIUM SERUM 3.2 MMOL/L (3.5-5.1); SODIUM LEVEL 140 MMOL/L (136-145); TOTAL PROTEIN 4.5 G/DL (5.7-8.2)
[2023-03-23 07:49] VITALS: BP 112/55
[2023-03-23] MEDS ORDERED: POTASSIUM CHLORIDE 10MEQ SR TABLET PO ONE (08:00)
[2023-03-23] MEDS: SALMETEROL DISKUS 50MCG INHALER (SEREVENT) INH SCH ×2 (08:10→20:19)
[2023-03-23] MEDS: TIOTROPIUM INHALER/CAPSULE (SPIRIVA) INH SCH (08:10)
[2023-03-23] MEDS: LACTOBACILLUS ACIDOPHILUS CAP (BACID) PO SCH ×2 (08:26→17:48)
[2023-03-23] MEDS: ATORVASTATIN 20 MG TAB PO SCH (08:27)
[2023-03-23 12:00] VITALS: BP 118/70
[2023-03-23 16:00] VITALS: BP 115/68
[2023-03-23 20:00] VITALS: BP 115/62
[2023-03-23] MEDS: ASPIRIN 81MG ENTERIC TABLET PO SCH (20:23)
[2023-03-24] VITALS (7 sets, daily range): BP systolic 112–140; BP diastolic 62–81
[2023-03-24] MEDS: PIPERACILLIN/TAZOBACTAM SOD 3.375 GM in D5W MINI-BAG PLUS 50 ML IV SCH ×4 (05:05→23:00)
[2023-03-24] MEDS: METOPROLOL TART 50 MG TAB PO SCH ×3 (05:06→22:59)
[2023-03-24 06:23] LABS: HEMATOCRIT 29.1 % (36.0-47.0); HEMOGLOBIN 8.8 g/dl (12.0-15.5); MEAN CORPUSCULAR HEMOGLOBIN 27.5 pg (27.0-33.0); MEAN CORPUSCULAR HGB CONC 30.2 g/dl (32.0-36.5); MEAN CORPUSCULAR VOLUME 90.9 fl (80.0-96.0); PLATELET COUNT, AUTOMATED 396 10^3/uL (150-450); WHITE BLOOD COUNT 14.3 10^3/uL (4.0-10.0)
[2023-03-24 06:56] LABS: ALBUMIN 1.7 G/DL (3.2-5.2); ALKALINE PHOSPHATASE 193 U/L (46-116); ALT/SGPT 57 U/L (7.0-40); AST/SGOT 96 U/L (<34); BILIRUBIN,TOTAL 0.3 MG/DL (0.3-1.2); BLOOD UREA NITROGEN 5 MG/DL (9-23); CALCIUM LEVEL 7.7 MG/DL (8.3-10.6); CARBON DIOXIDE LEVEL 25 MMOL/L (20-31); CHLORIDE LEVEL 107 MMOL/L (98-107); CREATININE FOR GFR 0.87 MG/DL (0.55-1.30); GLOMERULAR FILTRATION RATE > 60.0 (>32); GLUCOSE, FASTING 147 MG/DL (74-106); MAGNESIUM LEVEL 1.6 MG/DL (1.8-2.4); POTASSIUM SERUM 3.1 MMOL/L (3.5-5.1); SODIUM LEVEL 141 MMOL/L (136-145); TOTAL PROTEIN 4.9 G/DL (5.7-8.2)
[2023-03-24] MEDS ORDERED: POTASSIUM CHLORIDE 10MEQ SR TABLET PO ONE (07:30)
[2023-03-24] MEDS ORDERED: MAGNESIUM OXIDE 400MG TAB (MAG-OX) PO ONE (07:30)
[2023-03-24 07:32] LABS: ATYPICAL LYMPH 4 % (0-5); LYMPHOCYTES 12 % (16-44); MONOCYTES 4 % (0-5); NEUTROPHILS 77 % (28-66)
[2023-03-24 07:33] LABS: ANISOCYTOSIS 1+; HYPOCHROMASIA 1+
[2023-03-24 07:34] LABS: PLATELET ESTIMATE NORMAL (NORMAL)
[2023-03-24] MEDS: LACTOBACILLUS ACIDOPHILUS CAP (BACID) PO SCH ×2 (08:10→18:11)
[2023-03-24] MEDS: SALMETEROL DISKUS 50MCG INHALER (SEREVENT) INH SCH ×2 (08:47→20:24)
[2023-03-24] MEDS: TIOTROPIUM INHALER/CAPSULE (SPIRIVA) INH SCH (08:47)
[2023-03-24] MEDS: ATORVASTATIN 20 MG TAB PO SCH (09:52)
[2023-03-24] MEDS: D5W/LR 1,000 ML IV SCH ×2 (09:53→20:13)
[2023-03-24] MEDS: HEPARIN SOD (PORCINE) 5000UNITS/ML 1ML VIAL/SYRINGE SQ SCH ×2 (14:27→22:58)
[2023-03-24] MEDS: ASPIRIN 81MG ENTERIC TABLET PO SCH (20:10)
[2023-03-25] MEDS ORDERED: ANALGESIC BALM CRM 3OZ TOP PRN (02:40)
[2023-03-25] MEDS: D5W/LR 1,000 ML IV SCH (04:20)
[2023-03-25 05:14] VITALS: BP 146/80
[2023-03-25] MEDS: HEPARIN SOD (PORCINE) 5000UNITS/ML 1ML VIAL/SYRINGE SQ SCH ×3 (05:19→22:09)
[2023-03-25] MEDS: METOPROLOL TART 50 MG TAB PO SCH ×3 (05:19→22:09)
[2023-03-25] MEDS: PIPERACILLIN/TAZOBACTAM SOD 3.375 GM in D5W MINI-BAG PLUS 50 ML IV SCH ×4 (05:20→23:50)
[2023-03-25 06:32] LABS: HEMATOCRIT 27.8 % (36.0-47.0); HEMOGLOBIN 8.6 g/dl (12.0-15.5); MEAN CORPUSCULAR HEMOGLOBIN 27.8 pg (27.0-33.0); MEAN CORPUSCULAR HGB CONC 30.9 g/dl (32.0-36.5); PLATELET COUNT, AUTOMATED 402 10^3/uL (150-450); RED BLOOD COUNT 3.09 10^6/uL (4.00-5.40); WHITE BLOOD COUNT 14.5 10^3/uL (4.0-10.0)
[2023-03-25 06:51] LABS: ALBUMIN 1.5 G/DL (3.2-5.2); ALKALINE PHOSPHATASE 219 U/L (46-116); ALT/SGPT 102 U/L (7.0-40); AST/SGOT 182 U/L (<34); BILIRUBIN,TOTAL 0.3 MG/DL (0.3-1.2); BLOOD UREA NITROGEN < 5 MG/DL (9-23); CALCIUM LEVEL 7.3 MG/DL (8.3-10.6); CARBON DIOXIDE LEVEL 25 MMOL/L (20-31); CHLORIDE LEVEL 108 MMOL/L (98-107); CREATININE FOR GFR 0.82 MG/DL (0.55-1.30); GLOMERULAR FILTRATION RATE > 60.0 (>32); GLUCOSE, FASTING 89 MG/DL (74-106); MAGNESIUM LEVEL 1.4 MG/DL (1.8-2.4); POTASSIUM SERUM 3.6 MMOL/L (3.5-5.1); SODIUM LEVEL 141 MMOL/L (136-145); TOTAL PROTEIN 4.8 G/DL (5.7-8.2)
[2023-03-25 07:51] LABS: ATYPICAL LYMPH 4 % (0-5); EOSINOPHILS 3 % (0-3); HYPOCHROMASIA 1+; LYMPHOCYTES 9 % (16-44); METAMYELOCYTES 1 % (0-0); MONOCYTES 1 % (0-5); MYELOCYTES 1 % (0-0); NEUTROPHILS 78 % (28-66)
[2023-03-25 07:52] LABS: PLATELET ESTIMATE NORMAL (NORMAL)
[2023-03-25 08:00] VITALS: BP 134/82
[2023-03-25] MEDS ORDERED: MAGNESIUM OXIDE 400MG TAB (MAG-OX) PO ONE (08:00)
[2023-03-25] MEDS: ATORVASTATIN 20 MG TAB PO SCH (08:03)
[2023-03-25] MEDS: LACTOBACILLUS ACIDOPHILUS CAP (BACID) PO SCH ×2 (08:03→17:20)
[2023-03-25] MEDS: SALMETEROL DISKUS 50MCG INHALER (SEREVENT) INH SCH ×2 (08:16→19:54)
[2023-03-25] MEDS: TIOTROPIUM INHALER/CAPSULE (SPIRIVA) INH SCH (08:16)
[2023-03-25 12:00] VITALS: BP 123/65
[2023-03-25 15:41] VITALS: BP 131/70
[2023-03-25] MEDS: ASPIRIN 81MG ENTERIC TABLET PO SCH (20:30)
[2023-03-25 20:55] VITALS: BP 141/80
[2023-03-26] VITALS (10 sets, daily range): BP systolic 126–162; BP diastolic 68–90; O2SAT 93–94
[2023-03-26] MEDS: METOPROLOL TART 50 MG TAB PO SCH ×3 (06:26→21:45)
[2023-03-26] MEDS: PIPERACILLIN/TAZOBACTAM SOD 3.375 GM in D5W MINI-BAG PLUS 50 ML IV SCH ×3 (06:26→18:04)
[2023-03-26] MEDS: HEPARIN SOD (PORCINE) 5000UNITS/ML 1ML VIAL/SYRINGE SQ SCH ×3 (06:26→21:44)
[2023-03-26 07:50] LABS: BASO # 0.1 10^3/uL (0.0-0.2); BASO % 0.3 % (0.0-1.0); EOS # 0.1 10^3/uL (0.0-0.5); EOS % 0.8 % (0.0-3.0); HEMATOCRIT 28.5 % (36.0-47.0); HEMOGLOBIN 8.9 g/dl (12.0-15.5); LYMPH # 1.7 10^3/uL (1.5-5.0); LYMPH % 11.7 % (24.0-44.0); MEAN CORPUSCULAR HEMOGLOBIN 28.2 pg (27.0-33.0); MEAN CORPUSCULAR HGB CONC 31.2 g/dl (32.0-36.5); MEAN CORPUSCULAR VOLUME 90.2 fl (80.0-96.0); MONO # 0.6 10^3/uL (0.0-0.8); MONO % 4.1 % (2.0-8.0); NEUTROPHILS # 11.6 10^3/uL (1.5-8.5); NEUTROPHILS % 78.6 % (36.0-66.0); PLATELET COUNT, AUTOMATED 404 10^3/uL (150-450); RED BLOOD COUNT 3.16 10^6/uL (4.00-5.40); WHITE BLOOD COUNT 14.8 10^3/uL (4.0-10.0)
[2023-03-26] MEDS: TIOTROPIUM INHALER/CAPSULE (SPIRIVA) INH SCH (07:53)
[2023-03-26] MEDS: SALMETEROL DISKUS 50MCG INHALER (SEREVENT) INH SCH ×2 (07:53→20:24)
[2023-03-26 08:29] LABS: ALBUMIN 1.7 G/DL (3.2-5.2); ALKALINE PHOSPHATASE 260 U/L (46-116); ALT/SGPT 142 U/L (7.0-40); AST/SGOT 221 U/L (<34); BILIRUBIN,TOTAL 0.4 MG/DL (0.3-1.2); BLOOD UREA NITROGEN 6 MG/DL (9-23); CALCIUM LEVEL 7.9 MG/DL (8.3-10.6); CARBON DIOXIDE LEVEL 28 MMOL/L (20-31); CHLORIDE LEVEL 106 MMOL/L (98-107); CREATININE FOR GFR 0.87 MG/DL (0.55-1.30); GLOMERULAR FILTRATION RATE > 60.0 (>32); GLUCOSE, FASTING 113 MG/DL (74-106); MAGNESIUM LEVEL 1.6 MG/DL (1.8-2.4); POTASSIUM SERUM 3.4 MMOL/L (3.5-5.1); SODIUM LEVEL 142 MMOL/L (136-145); TOTAL PROTEIN 5.3 G/DL (5.7-8.2)
[2023-03-26] MEDS: LACTOBACILLUS ACIDOPHILUS CAP (BACID) PO SCH ×2 (08:39→18:04)
[2023-03-26] MEDS: ATORVASTATIN 20 MG TAB PO SCH (08:42)
[2023-03-26] MEDS ORDERED: POTASSIUM CHLORIDE 10MEQ SR TABLET PO ONE (12:00)
[2023-03-26] MEDS ORDERED: MAGNESIUM OXIDE 400MG TAB (MAG-OX) PO ONE (12:00)
[2023-03-26] MEDS: MORPHINE 2 MG/ML 1ML VIAL IV PRN (19:48)
[2023-03-26 20:23] LABS: ABG BASE EXCESS -0.5 (-2.0-2.0); ABG HCO3 24.4 MMOL/L (22.0-26.0); ABG O2 SATURATION 96.1 % (95.0-99.0); ABG PARTIAL PRESSURE CO2 41.2 mmHg (35.0-45.0); ABG PARTIAL PRESSURE O2 88.5 mmHg (75.0-100.0); ABG STANDARD HCO3 24.1 MMOL/L. (22.0-26.0); ABG TOTAL CO2 25.7 MMOL/L (23.0-31.0); ABG pH (ARTERIAL) 7.391 UNITS (7.350-7.450)
[2023-03-26] MEDS: IPRATROPIUM 0.5MG/ALBUTEROL 2.5MG INH SOL UD 3ML (DUONEB) NEB SCH (20:25)
[2023-03-26] MEDS: ASPIRIN 81MG ENTERIC TABLET PO SCH (20:43)
[2023-03-26] MEDS ORDERED: FUROSEMIDE 20MG/2ML VIAL IV ONE (21:20)
[2023-03-27] VITALS (24 sets, daily range): BP systolic 109–150; BP diastolic 57–77; O2SAT 87–98
[2023-03-27] MEDS: PIPERACILLIN/TAZOBACTAM SOD 3.375 GM in D5W MINI-BAG PLUS 50 ML IV SCH ×5 (01:06→23:32)
[2023-03-27] MEDS: HEPARIN SOD (PORCINE) 5000UNITS/ML 1ML VIAL/SYRINGE SQ SCH ×3 (05:35→21:53)
[2023-03-27] MEDS: METOPROLOL TART 50 MG TAB PO SCH ×3 (05:35→20:22)
[2023-03-27 06:51] LABS: BASO # 0.1 10^3/uL (0.0-0.2); BASO % 0.4 % (0.0-1.0); EOS # 0.1 10^3/uL (0.0-0.5); EOS % 0.6 % (0.0-3.0); HEMATOCRIT 26.4 % (36.0-47.0); LYMPH # 1.5 10^3/uL (1.5-5.0); LYMPH % 10.6 % (24.0-44.0); MEAN CORPUSCULAR HEMOGLOBIN 27.8 pg (27.0-33.0); MEAN CORPUSCULAR HGB CONC 30.3 g/dl (32.0-36.5); MEAN CORPUSCULAR VOLUME 91.7 fl (80.0-96.0); MONO # 0.6 10^3/uL (0.0-0.8); MONO % 4.4 % (2.0-8.0); NEUTROPHILS # 11.7 10^3/uL (1.5-8.5); NEUTROPHILS % 82.5 % (36.0-66.0); PLATELET COUNT, AUTOMATED 390 10^3/uL (150-450); RED BLOOD COUNT 2.88 10^6/uL (4.00-5.40); WHITE BLOOD COUNT 14.2 10^3/uL (4.0-10.0)
[2023-03-27 07:25] LABS: ALBUMIN 1.7 G/DL (3.2-5.2); BILIRUBIN,TOTAL 0.3 MG/DL (0.3-1.2); CALCIUM LEVEL 7.8 MG/DL (8.3-10.6); GLOMERULAR FILTRATION RATE 56.6 (>32); MAGNESIUM LEVEL 1.9 MG/DL (1.8-2.4); POTASSIUM SERUM 3.9 MMOL/L (3.5-5.1); TOTAL PROTEIN 5.2 G/DL (5.7-8.2)
[2023-03-27] MEDS: IPRATROPIUM 0.5MG/ALBUTEROL 2.5MG INH SOL UD 3ML (DUONEB) NEB SCH ×4 (08:00→19:52)
[2023-03-27] MEDS: LACTOBACILLUS ACIDOPHILUS CAP (BACID) PO SCH ×2 (08:12→18:49)
[2023-03-27] MEDS: ATORVASTATIN 20 MG TAB PO SCH (08:13)
[2023-03-27] MEDS: TIOTROPIUM INHALER/CAPSULE (SPIRIVA) INH SCH (08:46)
[2023-03-27] MEDS: SALMETEROL DISKUS 50MCG INHALER (SEREVENT) INH SCH (08:47)
[2023-03-27] MEDS: ASPIRIN 81MG ENTERIC TABLET PO SCH (20:21)
[2023-03-28] VITALS (19 sets, daily range): BP systolic 125–132; BP diastolic 66–74; O2SAT 86–97
[2023-03-28] MEDS: METOPROLOL TART 50 MG TAB PO SCH ×4 (01:26→20:32)
[2023-03-28] MEDS: HEPARIN SOD (PORCINE) 5000UNITS/ML 1ML VIAL/SYRINGE SQ SCH ×3 (05:09→20:32)
[2023-03-28] MEDS: PIPERACILLIN/TAZOBACTAM SOD 3.375 GM in D5W MINI-BAG PLUS 50 ML IV SCH ×3 (05:09→18:41)
[2023-03-28 05:35] LABS: BASO # 0.1 10^3/uL (0.0-0.2); BASO % 0.5 % (0.0-1.0); EOS # 0.1 10^3/uL (0.0-0.5); EOS % 1.3 % (0.0-3.0); HEMATOCRIT 27.5 % (36.0-47.0); HEMOGLOBIN 8.2 g/dl (12.0-15.5); LYMPH # 1.5 10^3/uL (1.5-5.0); LYMPH % 13.5 % (24.0-44.0); MEAN CORPUSCULAR HEMOGLOBIN 27.8 pg (27.0-33.0); MEAN CORPUSCULAR HGB CONC 29.8 g/dl (32.0-36.5); MEAN CORPUSCULAR VOLUME 93.2 fl (80.0-96.0); MONO # 0.6 10^3/uL (0.0-0.8); MONO % 5.6 % (2.0-8.0); NEUTROPHILS # 8.7 10^3/uL (1.5-8.5); NEUTROPHILS % 77.6 % (36.0-66.0); PLATELET COUNT, AUTOMATED 419 10^3/uL (150-450); RED BLOOD COUNT 2.95 10^6/uL (4.00-5.40); WHITE BLOOD COUNT 11.2 10^3/uL (4.0-10.0)
[2023-03-28 05:53] LABS: ALBUMIN 1.7 G/DL (3.2-5.2); BILIRUBIN,TOTAL 0.3 MG/DL (0.3-1.2); CALCIUM LEVEL 7.8 MG/DL (8.3-10.6); CREATININE FOR GFR 1.01 MG/DL (0.55-1.30); TOTAL PROTEIN 5.3 G/DL (5.7-8.2)
[2023-03-28] MEDS: TIOTROPIUM INHALER/CAPSULE (SPIRIVA) INH SCH (07:35)
[2023-03-28] MEDS: SALMETEROL DISKUS 50MCG INHALER (SEREVENT) INH SCH ×2 (07:35→19:33)
[2023-03-28] MEDS: IPRATROPIUM 0.5MG/ALBUTEROL 2.5MG INH SOL UD 3ML (DUONEB) NEB SCH ×4 (07:36→19:33)
[2023-03-28 08:25] LABS: C REACTIVE PROTEIN QUANTITATIV 5.5 MG/DL (<1.0)
[2023-03-28] MEDS: LACTOBACILLUS ACIDOPHILUS CAP (BACID) PO SCH ×2 (08:44→18:41)
[2023-03-28] MEDS: ATORVASTATIN 20 MG TAB PO SCH (08:45)
[2023-03-28 14:40] LABS: PERCENT SATURATION 18.2 % (13.2-45.0)
[2023-03-28 14:43] LABS: FOLATE 9.68 NG/ML (>5.4)
[2023-03-28] MEDS: ASPIRIN 81MG ENTERIC TABLET PO SCH (20:31)
[2023-03-29] VITALS (17 sets, daily range): BP systolic 117–145; BP diastolic 63–71; O2SAT 87–96
[2023-03-29] MEDS: METOPROLOL TART 50 MG TAB PO SCH ×4 (01:14→21:03)
[2023-03-29] MEDS: PIPERACILLIN/TAZOBACTAM SOD 3.375 GM in D5W MINI-BAG PLUS 50 ML IV SCH ×4 (01:14→18:37)
[2023-03-29] MEDS: HEPARIN SOD (PORCINE) 5000UNITS/ML 1ML VIAL/SYRINGE SQ SCH ×3 (06:02→21:02)
[2023-03-29 06:13] LABS: BASO # 0.1 10^3/uL (0.0-0.2); BASO % 0.7 % (0.0-1.0); EOS # 0.1 10^3/uL (0.0-0.5); EOS % 0.9 % (0.0-3.0); HEMATOCRIT 27.3 % (36.0-47.0); LYMPH # 1.4 10^3/uL (1.5-5.0); LYMPH % 12.3 % (24.0-44.0); MEAN CORPUSCULAR HEMOGLOBIN 27.5 pg (27.0-33.0); MEAN CORPUSCULAR HGB CONC 29.3 g/dl (32.0-36.5); MEAN CORPUSCULAR VOLUME 93.8 fl (80.0-96.0); MONO # 0.6 10^3/uL (0.0-0.8); MONO % 5.1 % (2.0-8.0); NEUTROPHILS # 9.3 10^3/uL (1.5-8.5); NEUTROPHILS % 79.8 % (36.0-66.0); PLATELET COUNT, AUTOMATED 429 10^3/uL (150-450); RED BLOOD COUNT 2.91 10^6/uL (4.00-5.40); WHITE BLOOD COUNT 11.7 10^3/uL (4.0-10.0)
[2023-03-29 06:38] LABS: ALBUMIN 1.7 G/DL (3.2-5.2); ALKALINE PHOSPHATASE 246 U/L (46-116); ALT/SGPT 75 U/L (7.0-40); AST/SGOT 56 U/L (<34); BILIRUBIN,TOTAL 0.3 MG/DL (0.3-1.2); BLOOD UREA NITROGEN 13 MG/DL (9-23); CALCIUM LEVEL 7.5 MG/DL (8.3-10.6); CARBON DIOXIDE LEVEL 26 MMOL/L (20-31); CHLORIDE LEVEL 107 MMOL/L (98-107); CREATININE FOR GFR 0.95 MG/DL (0.55-1.30); GLOMERULAR FILTRATION RATE > 60.0 (>32); GLUCOSE, FASTING 91 MG/DL (74-106); SODIUM LEVEL 142 MMOL/L (136-145); TOTAL PROTEIN 5.3 G/DL (5.7-8.2)
[2023-03-29] MEDS: TIOTROPIUM INHALER/CAPSULE (SPIRIVA) INH SCH (07:43)
[2023-03-29] MEDS: SALMETEROL DISKUS 50MCG INHALER (SEREVENT) INH SCH ×2 (07:44→21:56)
[2023-03-29] MEDS: IPRATROPIUM 0.5MG/ALBUTEROL 2.5MG INH SOL UD 3ML (DUONEB) NEB SCH ×2 (07:45→12:00)
[2023-03-29] MEDS: LACTOBACILLUS ACIDOPHILUS CAP (BACID) PO SCH ×2 (08:42→18:37)
[2023-03-29] MEDS: ATORVASTATIN 20 MG TAB PO SCH (08:43)
[2023-03-29] MEDS: ASPIRIN 81MG ENTERIC TABLET PO SCH (21:02)
[2023-03-30] VITALS (35 sets, daily range): BP systolic 100–127; BP diastolic 55–85; O2SAT 90–95
[2023-03-30] MEDS: PIPERACILLIN/TAZOBACTAM SOD 3.375 GM in D5W MINI-BAG PLUS 50 ML IV SCH ×5 (00:35→23:12)
[2023-03-30] MEDS: METOPROLOL TART 50 MG TAB PO SCH ×4 (01:26→20:20)
[2023-03-30 01:36] LABS: HEMATOCRIT 21.9 % (36.0-47.0)
[2023-03-30 01:45] LABS: HEMOGLOBIN 6.5 g/dl (12.0-15.5)
[2023-03-30] MEDS: IPRATROPIUM 0.5MG/ALBUTEROL 2.5MG INH SOL UD 3ML (DUONEB) NEB PRN (04:30)
[2023-03-30] MEDS ORDERED: NS 250 ML IV ONE (05:15)
[2023-03-30] MEDS: HEPARIN SOD (PORCINE) 5000UNITS/ML 1ML VIAL/SYRINGE SQ SCH (05:25)
[2023-03-30 06:42] LABS: BASO # 0.1 10^3/uL (0.0-0.2); BASO % 0.6 % (0.0-1.0); EOS # 0.1 10^3/uL (0.0-0.5); EOS % 0.4 % (0.0-3.0); HEMATOCRIT 25.7 % (36.0-47.0); LYMPH # 1.9 10^3/uL (1.5-5.0); LYMPH % 12.4 % (24.0-44.0); MEAN CORPUSCULAR HEMOGLOBIN 28.4 pg (27.0-33.0); MEAN CORPUSCULAR HGB CONC 31.1 g/dl (32.0-36.5); MEAN CORPUSCULAR VOLUME 91.1 fl (80.0-96.0); MONO # 0.7 10^3/uL (0.0-0.8); MONO % 4.7 % (2.0-8.0); NEUTROPHILS # 12.3 10^3/uL (1.5-8.5); NEUTROPHILS % 80.4 % (36.0-66.0); PLATELET COUNT, AUTOMATED 415 10^3/uL (150-450); RED BLOOD COUNT 2.82 10^6/uL (4.00-5.40); WHITE BLOOD COUNT 15.3 10^3/uL (4.0-10.0)
[2023-03-30 07:05] LABS: ALBUMIN 1.5 G/DL (3.2-5.2); ALKALINE PHOSPHATASE 171 U/L (46-116); ALT/SGPT 52 U/L (7.0-40); AST/SGOT 42 U/L (<34); BILIRUBIN,TOTAL 0.8 MG/DL (0.3-1.2); BLOOD UREA NITROGEN 39 MG/DL (9-23); CALCIUM LEVEL 7.2 MG/DL (8.3-10.6); CARBON DIOXIDE LEVEL 23 MMOL/L (20-31); CHLORIDE LEVEL 110 MMOL/L (98-107); CREATININE FOR GFR 0.85 MG/DL (0.55-1.30); GLOMERULAR FILTRATION RATE > 60.0 (>32); GLUCOSE, FASTING 99 MG/DL (74-106); MAGNESIUM LEVEL 1.7 MG/DL (1.8-2.4); SODIUM LEVEL 143 MMOL/L (136-145); TOTAL PROTEIN 4.7 G/DL (5.7-8.2)
[2023-03-30] MEDS: TIOTROPIUM INHALER/CAPSULE (SPIRIVA) INH SCH (07:44)
[2023-03-30] MEDS: SALMETEROL DISKUS 50MCG INHALER (SEREVENT) INH SCH ×2 (07:45→20:04)
[2023-03-30] MEDS: LACTOBACILLUS ACIDOPHILUS CAP (BACID) PO SCH ×2 (09:12→18:34)
[2023-03-30] MEDS: ATORVASTATIN 20 MG TAB PO SCH (09:12)
[2023-03-30] MEDS ORDERED: MAGNESIUM OXIDE 400MG TAB (MAG-OX) PO ONE (11:15)
[2023-03-30 12:18] LABS: HEMATOCRIT 22.4 % (36.0-47.0); HEMOGLOBIN 7.1 g/dl (12.0-15.5)
[2023-03-30] MEDS: ACETAMINOPHEN TAB 650MG DOSE (2X325MG) PO PRN ×2 (12:21→20:18)
[2023-03-30] MEDS: PANTOPRAZOLE 40MG VIAL IV SCH ×2 (14:20→20:18)
[2023-03-30] MEDS: ASPIRIN 81MG ENTERIC TABLET PO SCH (20:18)
[2023-03-30 20:19] LABS: HEMATOCRIT 24.8 % (36.0-47.0)
[2023-03-31] VITALS (24 sets, daily range): BP systolic 107–126; BP diastolic 56–72; O2SAT 93–97
[2023-03-31 01:54] LABS: HEMATOCRIT 22.7 % (36.0-47.0); HEMOGLOBIN 7.4 g/dl (12.0-15.5)
[2023-03-31] MEDS: METOPROLOL TART 50 MG TAB PO SCH ×4 (02:00→20:13)
[2023-03-31] MEDS ORDERED: NS 250 ML IV ONE (02:00)
[2023-03-31] MEDS: PIPERACILLIN/TAZOBACTAM SOD 3.375 GM in D5W MINI-BAG PLUS 50 ML IV SCH ×4 (05:55→23:06)
[2023-03-31 07:35] LABS: BASO # 0.1 10^3/uL (0.0-0.2); BASO % 0.7 % (0.0-1.0); EOS # 0.1 10^3/uL (0.0-0.5); EOS % 0.7 % (0.0-3.0); HEMATOCRIT 32.8 % (36.0-47.0); LYMPH # 1.8 10^3/uL (1.5-5.0); LYMPH % 10.7 % (24.0-44.0); MEAN CORPUSCULAR HEMOGLOBIN 29.4 pg (27.0-33.0); MEAN CORPUSCULAR VOLUME 91.9 fl (80.0-96.0); MONO # 0.9 10^3/uL (0.0-0.8); MONO % 5.1 % (2.0-8.0); NEUTROPHILS # 13.4 10^3/uL (1.5-8.5); NEUTROPHILS % 80.7 % (36.0-66.0); PLATELET COUNT, AUTOMATED 330 10^3/uL (150-450); RED BLOOD COUNT 3.57 10^6/uL (4.00-5.40); WHITE BLOOD COUNT 16.6 10^3/uL (4.0-10.0)
[2023-03-31 07:38] LABS: HEMOGLOBIN 10.5 g/dl (12.0-15.5)
[2023-03-31 07:39] LABS: ALBUMIN 1.7 G/DL (3.2-5.2); ALKALINE PHOSPHATASE 135 U/L (46-116); ALT/SGPT 52 U/L (7.0-40); AST/SGOT 48 U/L (<34); BILIRUBIN,TOTAL 0.6 MG/DL (0.3-1.2); BLOOD UREA NITROGEN 32 MG/DL (9-23); CALCIUM LEVEL 7.3 MG/DL (8.3-10.6); CARBON DIOXIDE LEVEL 20 MMOL/L (20-31); CHLORIDE LEVEL 112 MMOL/L (98-107); CREATININE FOR GFR 0.89 MG/DL (0.55-1.30); GLOMERULAR FILTRATION RATE > 60.0 (>32); GLUCOSE, FASTING 94 MG/DL (74-106); MAGNESIUM LEVEL 1.9 MG/DL (1.8-2.4); POTASSIUM SERUM 3.7 MMOL/L (3.5-5.1); SODIUM LEVEL 144 MMOL/L (136-145)
[2023-03-31] MEDS: TIOTROPIUM INHALER/CAPSULE (SPIRIVA) INH SCH (08:30)
[2023-03-31] MEDS: SALMETEROL DISKUS 50MCG INHALER (SEREVENT) INH SCH ×2 (08:30→20:18)
[2023-03-31] MEDS: PANTOPRAZOLE 40MG VIAL IV SCH ×2 (08:42→20:13)
[2023-03-31] MEDS: ATORVASTATIN 20 MG TAB PO SCH (08:43)
[2023-03-31] MEDS: LACTOBACILLUS ACIDOPHILUS CAP (BACID) PO SCH ×2 (08:43→17:30)
[2023-03-31] MEDS ORDERED: E-Z-GAS II EFFERVESCENT PACKET (SODIUM BICARB./CITRIC ACID/SIMETHICONE) As Ordered ONE (11:30)
[2023-03-31] MEDS ORDERED: E-Z-PAQUE 96% w/w SUSP 176GM BTL As Ordered ONE (11:30)
[2023-03-31] MEDS ORDERED: E-Z-HD 98% w/w 340GM SUSP BTL As Ordered ONE (11:30)
[2023-03-31] MEDS: ACETAMINOPHEN TAB 650MG DOSE (2X325MG) PO PRN ×3 (12:49→23:07)
[2023-03-31 16:24] LABS: HEMATOCRIT 26.8 % (36.0-47.0); HEMOGLOBIN 8.7 g/dl (12.0-15.5)
[2023-03-31] MEDS: SUCRALFATE SUSP 1GM/10ML UD PO SCH ×2 (17:30→20:13)
[2023-03-31] MEDS: ASPIRIN 81MG ENTERIC TABLET PO SCH (20:13)
[2023-03-31 22:45] LABS: HEMATOCRIT 26.6 % (36.0-47.0); HEMOGLOBIN 8.6 g/dl (12.0-15.5)
[2023-04-01] VITALS (16 sets, daily range): BP systolic 98–137; BP diastolic 56–68; O2SAT 93–96
[2023-04-01] MEDS: METOPROLOL TART 50 MG TAB PO SCH ×4 (02:11→20:00)
[2023-04-01] MEDS: ACETAMINOPHEN TAB 650MG DOSE (2X325MG) PO PRN ×5 (04:54→23:23)
[2023-04-01] MEDS: PIPERACILLIN/TAZOBACTAM SOD 3.375 GM in D5W MINI-BAG PLUS 50 ML IV SCH ×4 (04:54→23:23)
[2023-04-01] MEDS: SALMETEROL DISKUS 50MCG INHALER (SEREVENT) INH SCH ×2 (07:50→21:00)
[2023-04-01] MEDS: TIOTROPIUM INHALER/CAPSULE (SPIRIVA) INH SCH (07:50)
[2023-04-01 07:55] LABS: BASO # 0.1 10^3/uL (0.0-0.2); BASO % 0.5 % (0.0-1.0); EOS # 0.1 10^3/uL (0.0-0.5); EOS % 1.1 % (0.0-3.0); HEMATOCRIT 27.2 % (36.0-47.0); HEMOGLOBIN 8.8 g/dl (12.0-15.5); LYMPH # 1.3 10^3/uL (1.5-5.0); LYMPH % 10.9 % (24.0-44.0); MEAN CORPUSCULAR HGB CONC 32.4 g/dl (32.0-36.5); MEAN CORPUSCULAR VOLUME 92.8 fl (80.0-96.0); MONO # 0.7 10^3/uL (0.0-0.8); MONO % 5.8 % (2.0-8.0); NEUTROPHILS # 9.7 10^3/uL (1.5-8.5); NEUTROPHILS % 80.3 % (36.0-66.0); PLATELET COUNT, AUTOMATED 340 10^3/uL (150-450); RED BLOOD COUNT 2.93 10^6/uL (4.00-5.40); WHITE BLOOD COUNT 12.1 10^3/uL (4.0-10.0)
[2023-04-01] MEDS: PANTOPRAZOLE 40MG VIAL IV SCH ×2 (08:11→20:00)
[2023-04-01] MEDS: SUCRALFATE SUSP 1GM/10ML UD PO SCH ×4 (08:12→20:00)
[2023-04-01] MEDS: ATORVASTATIN 20 MG TAB PO SCH (08:12)
[2023-04-01] MEDS: LACTOBACILLUS ACIDOPHILUS CAP (BACID) PO SCH ×2 (08:12→17:42)
[2023-04-01 08:18] LABS: ALBUMIN 1.8 G/DL (3.2-5.2); BILIRUBIN,TOTAL 0.4 MG/DL (0.3-1.2); CALCIUM LEVEL 7.6 MG/DL (8.3-10.6); CREATININE FOR GFR 0.97 MG/DL (0.55-1.30); GLOMERULAR FILTRATION RATE 58.7 (>32); MAGNESIUM LEVEL 2.2 MG/DL (1.8-2.4); POTASSIUM SERUM 3.7 MMOL/L (3.5-5.1); TOTAL PROTEIN 4.9 G/DL (5.7-8.2)
[2023-04-01 15:07] LABS: HEMATOCRIT 27.2 % (36.0-47.0); HEMOGLOBIN 8.9 g/dl (12.0-15.5)
[2023-04-01] MEDS: ASPIRIN 81MG ENTERIC TABLET PO SCH (20:00)
[2023-04-02] VITALS (17 sets, daily range): BP systolic 110–136; BP diastolic 56–67; O2SAT 90–95
[2023-04-02] MEDS: METOPROLOL TART 50 MG TAB PO SCH ×4 (01:34→20:42)
[2023-04-02 02:24] LABS: APPEARANCE, URINE HAZY (CLEAR); BACTERIA, URINE AUTO NEGATIVE (NEGATIVE); BILIRUBIN, URINE AUTO NEGATIVE (NEGATIVE); BLOOD, URINE BLOOD NEGATIVE (NEGATIVE); COLOR, URINE YELLOW (YELLOW); GLUCOSE, URINE (UA) AUTO NEGATIVE (NEGATIVE); KETONE, URINE AUTO NEGATIVE (NEGATIVE); LEUKOCYTE ESTERASE, URINE AUTO NEGATIVE (NEGATIVE); NITRITE, URINE AUTO NEGATIVE (NEGATIVE); PROTEIN, URINE AUTO 1+ mg/dL (NEGATIVE); RBC, URINE AUTO 1 /HPF (0-3); SQUAMOUS EPITHELIAL CELL UR AU 10 /HPF (0-6); UROBILINOGEN, URINE AUTO 0.2 mg/dL (0.0-2.0); WBC, URINE AUTO 6 /HPF (0-3)
[2023-04-02] MEDS: ACETAMINOPHEN TAB 650MG DOSE (2X325MG) PO PRN ×4 (03:03→20:41)
[2023-04-02] MEDS ORDERED: NS 500 ML IV ONE (03:50)
[2023-04-02 04:45] LABS: BASO # 0.1 10^3/uL (0.0-0.2); BASO % 0.7 % (0.0-1.0); EOS # 0.1 10^3/uL (0.0-0.5); EOS % 0.9 % (0.0-3.0); HEMATOCRIT 26.5 % (36.0-47.0); HEMOGLOBIN 8.5 g/dl (12.0-15.5); LYMPH # 1.5 10^3/uL (1.5-5.0); LYMPH % 12.6 % (24.0-44.0); MEAN CORPUSCULAR HEMOGLOBIN 30.2 pg (27.0-33.0); MEAN CORPUSCULAR HGB CONC 32.1 g/dl (32.0-36.5); MEAN CORPUSCULAR VOLUME 94.3 fl (80.0-96.0); MONO # 0.8 10^3/uL (0.0-0.8); MONO % 6.5 % (2.0-8.0); NEUTROPHILS # 9.5 10^3/uL (1.5-8.5); NEUTROPHILS % 78.4 % (36.0-66.0); PLATELET COUNT, AUTOMATED 319 10^3/uL (150-450); RED BLOOD COUNT 2.81 10^6/uL (4.00-5.40); WHITE BLOOD COUNT 12.1 10^3/uL (4.0-10.0)
[2023-04-02 05:09] LABS: ALBUMIN 1.7 G/DL (3.2-5.2); ALKALINE PHOSPHATASE 123 U/L (46-116); ALT/SGPT 43 U/L (7.0-40); AST/SGOT 44 U/L (<34); BILIRUBIN,TOTAL 0.3 MG/DL (0.3-1.2); BLOOD UREA NITROGEN 18 MG/DL (9-23); CALCIUM LEVEL 7.1 MG/DL (8.3-10.6); CARBON DIOXIDE LEVEL 23 MMOL/L (20-31); CHLORIDE LEVEL 111 MMOL/L (98-107); CREATININE FOR GFR 0.89 MG/DL (0.55-1.30); GLOMERULAR FILTRATION RATE > 60.0 (>32); GLUCOSE, FASTING 89 MG/DL (74-106); SODIUM LEVEL 141 MMOL/L (136-145); TOTAL PROTEIN 4.8 G/DL (5.7-8.2)
[2023-04-02] MEDS: PIPERACILLIN/TAZOBACTAM SOD 3.375 GM in D5W MINI-BAG PLUS 50 ML IV SCH ×3 (05:09→17:38)
[2023-04-02] MEDS: POTASSIUM CHLORIDE 10MEQ SR TABLET PO SCH ×2 (06:29→08:15)
[2023-04-02] MEDS: LACTOBACILLUS ACIDOPHILUS CAP (BACID) PO SCH ×2 (08:14→17:38)
[2023-04-02] MEDS: PANTOPRAZOLE 40MG VIAL IV SCH ×2 (08:14→20:42)
[2023-04-02] MEDS: SUCRALFATE SUSP 1GM/10ML UD PO SCH ×4 (08:14→20:42)
[2023-04-02] MEDS: ATORVASTATIN 20 MG TAB PO SCH (08:14)
[2023-04-02] MEDS: TIOTROPIUM INHALER/CAPSULE (SPIRIVA) INH SCH (08:26)
[2023-04-02] MEDS: SALMETEROL DISKUS 50MCG INHALER (SEREVENT) INH SCH ×2 (08:26→19:21)
[2023-04-02] MEDS: ASPIRIN 81MG ENTERIC TABLET PO SCH (20:41)
[2023-04-03] VITALS (24 sets, daily range): BP systolic 112–170; BP diastolic 56–97; O2SAT 92–96
[2023-04-03] MEDS: PIPERACILLIN/TAZOBACTAM SOD 3.375 GM in D5W MINI-BAG PLUS 50 ML IV SCH ×4 (00:24→18:00)
[2023-04-03] MEDS: METOPROLOL TART 50 MG TAB PO SCH ×4 (01:28→21:03)
[2023-04-03] MEDS: ACETAMINOPHEN TAB 650MG DOSE (2X325MG) PO PRN ×5 (02:38→21:03)
[2023-04-03 03:39] LABS: BASO # 0.1 10^3/uL (0.0-0.2); BASO % 0.6 % (0.0-1.0); EOS # 0.1 10^3/uL (0.0-0.5); EOS % 0.8 % (0.0-3.0); HEMATOCRIT 26.1 % (36.0-47.0); HEMOGLOBIN 8.2 g/dl (12.0-15.5); LYMPH # 1.4 10^3/uL (1.5-5.0); LYMPH % 11.9 % (24.0-44.0); MEAN CORPUSCULAR HEMOGLOBIN 29.7 pg (27.0-33.0); MEAN CORPUSCULAR HGB CONC 31.4 g/dl (32.0-36.5); MEAN CORPUSCULAR VOLUME 94.6 fl (80.0-96.0); MONO # 0.8 10^3/uL (0.0-0.8); MONO % 6.5 % (2.0-8.0); NEUTROPHILS # 9.2 10^3/uL (1.5-8.5); NEUTROPHILS % 79.4 % (36.0-66.0); PLATELET COUNT, AUTOMATED 309 10^3/uL (150-450); RED BLOOD COUNT 2.76 10^6/uL (4.00-5.40); WHITE BLOOD COUNT 11.6 10^3/uL (4.0-10.0)
[2023-04-03 04:04] LABS: ALBUMIN 1.6 G/DL (3.2-5.2); ALKALINE PHOSPHATASE 115 U/L (46-116); ALT/SGPT 32 U/L (7.0-40); AST/SGOT 27 U/L (<34); BILIRUBIN,TOTAL 0.3 MG/DL (0.3-1.2); BLOOD UREA NITROGEN 14 MG/DL (9-23); CALCIUM LEVEL 7.1 MG/DL (8.3-10.6); CARBON DIOXIDE LEVEL 21 MMOL/L (20-31); CHLORIDE LEVEL 111 MMOL/L (98-107); CREATININE FOR GFR 0.87 MG/DL (0.55-1.30); GLOMERULAR FILTRATION RATE > 60.0 (>32); GLUCOSE, FASTING 103 MG/DL (74-106); POTASSIUM SERUM 3.8 MMOL/L (3.5-5.1); SODIUM LEVEL 142 MMOL/L (136-145); TOTAL PROTEIN 4.8 G/DL (5.7-8.2)
[2023-04-03] MEDS: SUCRALFATE SUSP 1GM/10ML UD PO SCH ×4 (07:45→21:03)
[2023-04-03] MEDS: LACTOBACILLUS ACIDOPHILUS CAP (BACID) PO SCH ×2 (07:45→16:34)
[2023-04-03] MEDS: ATORVASTATIN 20 MG TAB PO SCH (07:46)
[2023-04-03] MEDS: PANTOPRAZOLE 40MG VIAL IV SCH ×2 (07:47→21:03)
[2023-04-03] MEDS: TIOTROPIUM INHALER/CAPSULE (SPIRIVA) INH SCH (08:26)
[2023-04-03] MEDS: SALMETEROL DISKUS 50MCG INHALER (SEREVENT) INH SCH ×2 (08:26→20:59)
[2023-04-03] MEDS ORDERED: RISATAB3 PO (14:20)
[2023-04-03] MEDS ORDERED: CARA1TAB6 PO (14:20)
[2023-04-03] MEDS ORDERED: LOPR1TAB7 PO (14:20)
[2023-04-03] MEDS ORDERED: ATOR1TAB21 PO (14:20)
[2023-04-03] MEDS ORDERED: PANT40TA29 PO (14:20)
[2023-04-03] MEDS ORDERED: AMOX875T2 PO (14:20)
[2023-04-03] MEDS: IPRATROPIUM 0.5MG/ALBUTEROL 2.5MG INH SOL UD 3ML (DUONEB) NEB PRN (19:29)
[2023-04-03] MEDS ORDERED: FUROSEMIDE 20MG/2ML VIAL IV ONE (20:00)
[2023-04-03] MEDS ORDERED: FUROSEMIDE 100MG/10ML VIAL As Ordered ONE (20:07)
[2023-04-03 20:20] LABS: BASO # 0.1 10^3/uL (0.0-0.2); BASO % 0.7 % (0.0-1.0); EOS # 0.1 10^3/uL (0.0-0.5); EOS % 0.8 % (0.0-3.0); HEMATOCRIT 32.3 % (36.0-47.0); LYMPH # 1.7 10^3/uL (1.5-5.0); LYMPH % 14.5 % (24.0-44.0); MEAN CORPUSCULAR HEMOGLOBIN 30.9 pg (27.0-33.0); MEAN CORPUSCULAR HGB CONC 32.5 g/dl (32.0-36.5); MONO # 0.7 10^3/uL (0.0-0.8); MONO % 5.9 % (2.0-8.0); NEUTROPHILS # 9.1 10^3/uL (1.5-8.5); NEUTROPHILS % 77.2 % (36.0-66.0); PLATELET COUNT, AUTOMATED 341 10^3/uL (150-450); WHITE BLOOD COUNT 11.8 10^3/uL (4.0-10.0)
[2023-04-03 20:38] LABS: HEMOGLOBIN 10.5 g/dl (12.0-15.5)
[2023-04-03 20:48] LABS: BLOOD UREA NITROGEN 15 MG/DL (9-23); CALCIUM LEVEL 7.1 MG/DL (8.3-10.6); CARBON DIOXIDE LEVEL 20 MMOL/L (20-31); CHLORIDE LEVEL 108 MMOL/L (98-107); CREATININE FOR GFR 0.87 MG/DL (0.55-1.30); GLOMERULAR FILTRATION RATE > 60.0 (>32); GLUCOSE, FASTING 165 MG/DL (74-106); POTASSIUM SERUM 3.6 MMOL/L (3.5-5.1); SODIUM LEVEL 140 MMOL/L (136-145)
[2023-04-03] MEDS ORDERED: ALBUTEROL SULFATE 2.5MG/0.5ML INH NEB SOLN NEB ONE (21:00)
[2023-04-03] MEDS ORDERED: FUROSEMIDE 100MG/10ML VIAL IV ONE ×2 (21:00)
[2023-04-03] MEDS: ASPIRIN 81MG ENTERIC TABLET PO SCH (21:03)
[2023-04-04] VITALS (11 sets, daily range): BP systolic 124–140; BP diastolic 60–65; O2SAT 93–95
[2023-04-04] MEDS: PIPERACILLIN/TAZOBACTAM SOD 3.375 GM in D5W MINI-BAG PLUS 50 ML IV SCH ×3 (00:43→11:38)
[2023-04-04] MEDS: METOPROLOL TART 50 MG TAB PO SCH ×2 (01:57→08:19)
[2023-04-04] MEDS: ACETAMINOPHEN TAB 650MG DOSE (2X325MG) PO PRN (01:57)
[2023-04-04 06:48] LABS: BASO # 0.1 10^3/uL (0.0-0.2); BASO % 0.7 % (0.0-1.0); EOS # 0.1 10^3/uL (0.0-0.5); EOS % 0.6 % (0.0-3.0); HEMATOCRIT 31.4 % (36.0-47.0); HEMOGLOBIN 10.3 g/dl (12.0-15.5); LYMPH # 1.4 10^3/uL (1.5-5.0); LYMPH % 13.6 % (24.0-44.0); MEAN CORPUSCULAR HEMOGLOBIN 30.7 pg (27.0-33.0); MEAN CORPUSCULAR HGB CONC 32.8 g/dl (32.0-36.5); MEAN CORPUSCULAR VOLUME 93.5 fl (80.0-96.0); MONO # 0.7 10^3/uL (0.0-0.8); MONO % 6.7 % (2.0-8.0); NEUTROPHILS # 7.9 10^3/uL (1.5-8.5); NEUTROPHILS % 77.7 % (36.0-66.0); PLATELET COUNT, AUTOMATED 313 10^3/uL (150-450); RED BLOOD COUNT 3.36 10^6/uL (4.00-5.40); WHITE BLOOD COUNT 10.2 10^3/uL (4.0-10.0)
[2023-04-04 07:17] LABS: ALBUMIN 1.7 G/DL (3.2-5.2); ALKALINE PHOSPHATASE 122 U/L (46-116); ALT/SGPT 30 U/L (7.0-40); AST/SGOT 26 U/L (<34); BILIRUBIN,TOTAL 0.6 MG/DL (0.3-1.2); BLOOD UREA NITROGEN 12 MG/DL (9-23); CALCIUM LEVEL 7.7 MG/DL (8.3-10.6); CARBON DIOXIDE LEVEL 26 MMOL/L (20-31); CHLORIDE LEVEL 107 MMOL/L (98-107); CREATININE FOR GFR 0.94 MG/DL (0.55-1.30); GLOMERULAR FILTRATION RATE > 60.0 (>32); GLUCOSE, FASTING 88 MG/DL (74-106); MAGNESIUM LEVEL 1.7 MG/DL (1.8-2.4); POTASSIUM SERUM 3.3 MMOL/L (3.5-5.1); SODIUM LEVEL 142 MMOL/L (136-145); TOTAL PROTEIN 5.2 G/DL (5.7-8.2)
[2023-04-04] MEDS ORDERED: POTASSIUM CHLORIDE 10MEQ SR TABLET PO ONE (08:00)
[2023-04-04] MEDS ORDERED: MAGNESIUM OXIDE 400MG TAB (MAG-OX) PO ONE (08:00)
[2023-04-04] MEDS: PANTOPRAZOLE 40MG VIAL IV SCH (08:18)
[2023-04-04] MEDS: SUCRALFATE SUSP 1GM/10ML UD PO SCH ×2 (08:18→11:38)
[2023-04-04] MEDS: ATORVASTATIN 20 MG TAB PO SCH (08:18)
[2023-04-04] MEDS: LACTOBACILLUS ACIDOPHILUS CAP (BACID) PO SCH (08:19)
[2023-04-04] MEDS: SALMETEROL DISKUS 50MCG INHALER (SEREVENT) INH SCH (08:51)
[2023-04-04] MEDS: TIOTROPIUM INHALER/CAPSULE (SPIRIVA) INH SCH (08:51)
[2023-04-04] MEDS ORDERED: FUROSEMIDE 40 MG TAB PO ONE (11:30)
== END 2023-04-04 13:38 | disposition home or self-care (01) | DRG 871 ==
LOC: M ED 21:12 → M ED INP 03-20 01:56 → M PCU 03-20 03:06
PROVIDERS: ADMIT Internal Medicine; ATTEND Family Medicine
PROC: B246ZZZ Ultrasonography of Right and Left Heart (ICD-10-PCS; 2023-03-21)
PROC: 30233N1 Transfusion of Nonautologous Red Blood Cells into Peripheral Vein, Percutaneous Approach (ICD-10-PCS; principal; 2023-03-30)
DX: A41.9 Sepsis, unspecified organism (principal); K29.71 Gastritis, unspecified, with bleeding; I21.A1 Myocardial infarction type 2; E87.20 Acidosis, unspecified; N17.9 Acute kidney failure, unspecified; E87.1 Hypo-osmolality and hyponatremia; N39.0 Urinary tract infection, site not specified; K56.7 Ileus, unspecified; K57.80 Diverticulitis of intestine, part unspecified, with perforation and abscess without bleeding; D62 Acute posthemorrhagic anemia; E87.71 Transfusion associated circulatory overload; T36.95XA Adverse effect of unspecified systemic antibiotic, initial encounter; R19.7 Diarrhea, unspecified; I25.10 Atherosclerotic heart disease of native coronary artery without angina pectoris; E78.5 Hyperlipidemia, unspecified; E86.0 Dehydration; I48.91 Unspecified atrial fibrillation; R74.01 Elevation of levels of liver transaminase levels; I10 Essential (primary) hypertension; R73.9 Hyperglycemia, unspecified; E87.6 Hypokalemia; J44.9 Chronic obstructive pulmonary disease, unspecified; F41.9 Anxiety disorder, unspecified; Z87.891 Personal history of nicotine dependence; Z79.82 Long term (current) use of aspirin; Z79.899 Other long term (current) drug therapy; Z20.822 Contact with and (suspected) exposure to COVID-19; I25.2 Old myocardial infarction

== ENCOUNTER 2023-04-13 06:44 | Observation (INO) | payer MEDICARE ==
[~2023-04-13] VITALS: Ht 154.9 cm; Wt 60.7 kg
[~2023-04-13 06:44] MED LIST changes: +AMOX875T2 PO; +ATOR1TAB21 PO; +BACTDSTA PO; +CARA1TAB6 PO; +CHLO125TA PO; +LISI40TA4 PO; +LOPR1TAB7 PO; +METO1TAB33 PO; +PANT40TA29 PO; +RISATAB3 PO; +UNRESOLVED CLARIFICATION ENTRY XX SCH
[2023-04-13 07:20] LABS: VENOUS BASE EXCESS -0.6 (-2.0-2.0); VENOUS HCO3 25.5 MMOL/L (23.0-27.0); VENOUS O2 SATURATION 98.8 % (60.0-80.0); VENOUS PARTIAL PRESSURE CO2 47.6 mmHg (38.0-50.0); VENOUS PH 7.347 UNITS (7.330-7.430)
[2023-04-13 07:40] LABS: CK-MB VALUE MASS < 1.0 NG/ML (<3.6)
[2023-04-13 07:43] LABS: ALBUMIN 2.3 G/DL (3.2-5.2); ALKALINE PHOSPHATASE 148 U/L (46-116); ALT/SGPT 41 U/L (7.0-40); AST/SGOT 59 U/L (<34); BILIRUBIN,DIRECT 0.1 MG/DL (<0.4); BILIRUBIN,TOTAL 0.4 MG/DL (0.3-1.2); BLOOD UREA NITROGEN 12 MG/DL (9-23); CARBON DIOXIDE LEVEL 28 MMOL/L (20-31); CHLORIDE LEVEL 106 MMOL/L (98-107); CREATININE FOR GFR 0.75 MG/DL (0.55-1.30); GLOMERULAR FILTRATION RATE > 60.0 (>32); GLUCOSE, FASTING 111 MG/DL (74-106); POTASSIUM SERUM 3.7 MMOL/L (3.5-5.1); SODIUM LEVEL 142 MMOL/L (136-145); THYROID STIMULATING HORMONE 2.066 uIU/ML (0.55-4.78); TOTAL PROTEIN 6.2 G/DL (5.7-8.2)
[2023-04-13 07:45] LABS: BASO # 0.2 10^3/uL (0.0-0.2); BASO % 1.3 % (0.0-1.0); EOS # 0.1 10^3/uL (0.0-0.5); HEMATOCRIT 34.8 % (36.0-47.0); LYMPH # 1.9 10^3/uL (1.5-5.0); LYMPH % 16.3 % (24.0-44.0); MEAN CORPUSCULAR HEMOGLOBIN 29.9 pg (27.0-33.0); MEAN CORPUSCULAR HGB CONC 31.6 g/dl (32.0-36.5); MEAN CORPUSCULAR VOLUME 94.6 fl (80.0-96.0); MONO # 0.6 10^3/uL (0.0-0.8); MONO % 5.3 % (2.0-8.0); NEUTROPHILS # 8.5 10^3/uL (1.5-8.5); PLATELET COUNT, AUTOMATED 355 10^3/uL (150-450); RED BLOOD COUNT 3.68 10^6/uL (4.00-5.40); WHITE BLOOD COUNT 11.5 10^3/uL (4.0-10.0)
[2023-04-13 07:51] LABS: INR 1.03; PROTHROMBIN TIME 13.7 SECONDS (12.5-14.5)
[2023-04-13 07:55] LABS: CPK CREATINE PHOSPHOKINASE 29 U/L (34-145); MB/CK RELATIVE INDEX 3.44 (< OR =4)
[2023-04-13] MEDS ORDERED: ISOVUE-370 76% 100ML VIAL As Ordered ONE (08:48)
[2023-04-13 09:13] LABS: CK-MB VALUE MASS < 1.0 NG/ML (<3.6)
[2023-04-13 09:14] LABS: CPK CREATINE PHOSPHOKINASE 26 U/L (34-145); MB/CK RELATIVE INDEX 3.84 (< OR =4)
[2023-04-13] MEDS ORDERED: FUROSEMIDE 40MG/4ML VIAL IV ONE ×2 (10:00→18:00)
[2023-04-13] MEDS ORDERED: ATOR80TA59 PO (12:17)
[2023-04-13] MEDS ORDERED: PANT-23 PO (12:17)
[2023-04-13] MEDS ORDERED: SUCR1TAB56 PO (12:17)
[2023-04-13] MEDS ORDERED: METO100T5 PO (12:17)
[2023-04-13] MEDS ORDERED: HOME MED LIST COMPLETE! XX SCH (12:20)
[2023-04-13] MEDS ORDERED: MAALOX 30 ML SUSP *UDC PO PRN (12:25)
[2023-04-13] MEDS ORDERED: MOM 30ML SUSPENSION UDC PO PRN (12:25)
[2023-04-13] MEDS: PANTOPRAZOLE 40MG TAB (PROTONIX) PO SCH (14:22)
[2023-04-13] MEDS: ATORVASTATIN 20 MG TAB PO SCH (14:22)
[2023-04-13] MEDS: DOCUSATE SODIUM 100MG CAPSULE PO SCH ×2 (14:22→21:17)
[2023-04-13 14:27] VITALS: BP 153/74
[2023-04-13 15:53] VITALS: BP 133/71
[2023-04-13] MEDS: METOPROLOL TARTRATE 100MG TAB PO SCH ×2 (15:54→21:17)
[2023-04-13] MEDS: SUCRALFATE 1 GM TAB PO SCH ×2 (17:44→21:17)
[2023-04-13] MEDS ORDERED: FUROSEMIDE 40MG/4ML VIAL IV SCH (18:00)
[2023-04-13 20:28] VITALS: BP 131/60
[2023-04-13] MEDS ORDERED: METOPROLOL TARTRATE 100MG TAB PO SCH (21:00)
[2023-04-13] MEDS ORDERED: ASPIRIN 81MG ENTERIC TABLET PO SCH (21:00)
[2023-04-13] MEDS: ACETAMINOPHEN TAB 650MG DOSE (2X325MG) PO PRN (21:17)
[2023-04-14] MEDS ORDERED: FUROSEMIDE 40MG/4ML VIAL IV SCH
[2023-04-14 00:09] VITALS: BP 132/65
[2023-04-14 04:39] LABS: BASO # 0.1 10^3/uL (0.0-0.2); BASO % 1.1 % (0.0-1.0); EOS # 0.1 10^3/uL (0.0-0.5); EOS % 0.9 % (0.0-3.0); HEMATOCRIT 34.5 % (36.0-47.0); HEMOGLOBIN 11.1 g/dl (12.0-15.5); LYMPH # 1.9 10^3/uL (1.5-5.0); LYMPH % 15.9 % (24.0-44.0); MEAN CORPUSCULAR HEMOGLOBIN 29.5 pg (27.0-33.0); MEAN CORPUSCULAR HGB CONC 32.2 g/dl (32.0-36.5); MEAN CORPUSCULAR VOLUME 91.8 fl (80.0-96.0); MONO # 0.8 10^3/uL (0.0-0.8); MONO % 6.6 % (2.0-8.0); NEUTROPHILS # 8.7 10^3/uL (1.5-8.5); NEUTROPHILS % 73.9 % (36.0-66.0); PLATELET COUNT, AUTOMATED 498 10^3/uL (150-450); RED BLOOD COUNT 3.76 10^6/uL (4.00-5.40); WHITE BLOOD COUNT 11.8 10^3/uL (4.0-10.0)
[2023-04-14 04:51] LABS: ALBUMIN 2.2 G/DL (3.2-5.2); ALKALINE PHOSPHATASE 143 U/L (46-116); ALT/SGPT 41 U/L (7.0-40); AST/SGOT 53 U/L (<34); BILIRUBIN,TOTAL 0.4 MG/DL (0.3-1.2); BLOOD UREA NITROGEN 15 MG/DL (9-23); CALCIUM LEVEL 8.3 MG/DL (8.3-10.6); CARBON DIOXIDE LEVEL 32 MMOL/L (20-31); CHLORIDE LEVEL 103 MMOL/L (98-107); CREATININE FOR GFR 0.91 MG/DL (0.55-1.30); FREE T4 1.09 NG/DL (0.89-1.76); GLOMERULAR FILTRATION RATE > 60.0 (>32); GLUCOSE, FASTING 94 MG/DL (74-106); MAGNESIUM LEVEL 1.6 MG/DL (1.8-2.4); POTASSIUM SERUM 3.5 MMOL/L (3.5-5.1); SODIUM LEVEL 143 MMOL/L (136-145); THYROID STIMULATING HORMONE 1.838 uIU/ML (0.55-4.78); TOTAL PROTEIN 5.9 G/DL (5.7-8.2)
[2023-04-14 04:56] VITALS: BP 144/64
[2023-04-14 06:11] VITALS: BP 144/64
[2023-04-14] MEDS: METOPROLOL TARTRATE 100MG TAB PO SCH (06:11)
[2023-04-14] MEDS: ACETAMINOPHEN TAB 650MG DOSE (2X325MG) PO PRN ×2 (06:11→10:37)
[2023-04-14 08:03] VITALS: BP 123/67
[2023-04-14] MEDS ORDERED: LOPR1TAB7 PO (08:52)
[2023-04-14] MEDS ORDERED: FURO40TA2 PO (08:52)
[2023-04-14] MEDS ORDERED: METO25TA PO (08:52)
[2023-04-14] MEDS ORDERED: MAGN400T2 PO (08:54)
[2023-04-14] MEDS ORDERED: POTA10CA33 PO (08:54)
[2023-04-14] MEDS ORDERED: ENOXAPARIN 40MG/0.4ML SYRINGE (J1650 PER 10MG) SC SCH (09:00)
[2023-04-14] MEDS ORDERED: FUROSEMIDE 40 MG TAB PO SCH (09:00)
[2023-04-14] MEDS: MAG SULF 1GM/100ML (MAG RUN) 1 GM in IV 1 EA IV SCH ×2 (09:10→10:37)
[2023-04-14] MEDS: SUCRALFATE 1 GM TAB PO SCH (09:11)
[2023-04-14] MEDS: ATORVASTATIN 20 MG TAB PO SCH (09:11)
[2023-04-14] MEDS: DOCUSATE SODIUM 100MG CAPSULE PO SCH (09:11)
[2023-04-14] MEDS: PANTOPRAZOLE 40MG TAB (PROTONIX) PO SCH (09:11)
== END 2023-04-14 12:03 | disposition home health service (06) ==
LOC: M ED 06:44 → M ED INP 06:45 → ENRESERV 12:58 → M PCU 13:42
PROVIDERS: ADMIT Internal Medicine; ATTEND Internal Medicine
DX: R06.02 Shortness of breath (principal); I50.30 Unspecified diastolic (congestive) heart failure; J90 Pleural effusion, not elsewhere classified; I49.8 Other specified cardiac arrhythmias; I11.0 Hypertensive heart disease with heart failure; I25.2 Old myocardial infarction; E78.5 Hyperlipidemia, unspecified; J44.9 Chronic obstructive pulmonary disease, unspecified; E83.42 Hypomagnesemia; Z79.82 Long term (current) use of aspirin; Z79.899 Other long term (current) drug therapy
CPT/HCPCS: 36415; 71045; 71275; 80048; 80053; 80076; 81001; 82550; 82553; 82803; 83605; 83735; 83880; 84439; 84443; 84484; 85025; 85610; 87040; 87486; 87581; 87633; 87798; 93005; 93041; 94760; 96361; 96372; 96374; 96376; 99285; G0378; J1650; J1940; J3475; Q9967

== ENCOUNTER → 2023-04-18 | Outpatient (REF) | payer MEDICARE ==
[~2023-04-18] MED LIST changes: +ATOR80TA59 PO; +FURO40TA2 PO; +MAGN400T2 PO; +METO100T5 PO; +METO25TA PO; +PANT-23 PO; +POTA10CA33 PO; +SUCR1TAB56 PO; -UNRESOLVED CLARIFICATION ENTRY XX SCH
== END ==
LOC: M LAB REF 12:32
PROVIDERS: ATTEND Internal Medicine
DX: D72.829 Elevated white blood cell count, unspecified (principal)

== ENCOUNTER → 2023-04-19 | Outpatient (REF) | payer MEDICARE ==
[2023-04-19 14:18] LABS: HEMATOCRIT 34.8 % (36.0-47.0); HEMOGLOBIN 10.9 g/dl (12.0-15.5); MEAN CORPUSCULAR HEMOGLOBIN 29.5 pg (27.0-33.0); MEAN CORPUSCULAR HGB CONC 31.3 g/dl (32.0-36.5); MEAN CORPUSCULAR VOLUME 94.3 fl (80.0-96.0); PLATELET COUNT, AUTOMATED 451 10^3/uL (150-450); RED BLOOD COUNT 3.69 10^6/uL (4.00-5.40); WHITE BLOOD COUNT 18.9 10^3/uL (4.0-10.0)
[2023-04-19 14:35] LABS: ERYTHROCYTE SEDIMENTATION RATE 65 mm/hr (0-30)
[2023-04-19 15:05] LABS: C REACTIVE PROTEIN QUANTITATIV 11.8 MG/DL (<1.0)
[2023-04-19 15:07] LABS: ALBUMIN 2.2 G/DL (3.2-5.2); BILIRUBIN,TOTAL 0.6 MG/DL (0.3-1.2); CALCIUM LEVEL 8.4 MG/DL (8.3-10.6); CREATININE FOR GFR 0.97 MG/DL (0.55-1.30); GLOMERULAR FILTRATION RATE 58.7 (>32); MAGNESIUM LEVEL 1.7 MG/DL (1.8-2.4)
== END ==
LOC: M SHH 13:35
PROVIDERS: ATTEND Internal Medicine
DX: D72.829 Elevated white blood cell count, unspecified (principal); I13.0 Hypertensive heart and chronic kidney disease with heart failure and stage 1 through stage 4 chronic kidney disease, or unspecified chronic kidney disease; I47.1 Supraventricular tachycardia; E83.42 Hypomagnesemia; I50.31 Acute diastolic (congestive) heart failure; N18.31 Chronic kidney disease, stage 3a

== ENCOUNTER → 2023-04-26 | Outpatient (REF) | payer MEDICARE ==
[2023-04-26 15:13] LABS: HEMATOCRIT 35.2 % (36.0-47.0); HEMOGLOBIN 10.6 g/dl (12.0-15.5); MEAN CORPUSCULAR HEMOGLOBIN 29.3 pg (27.0-33.0); MEAN CORPUSCULAR HGB CONC 30.1 g/dl (32.0-36.5); MEAN CORPUSCULAR VOLUME 97.2 fl (80.0-96.0); PLATELET COUNT, AUTOMATED 552 10^3/uL (150-450); RED BLOOD COUNT 3.62 10^6/uL (4.00-5.40); WHITE BLOOD COUNT 11.1 10^3/uL (4.0-10.0)
[2023-04-26 15:50] LABS: ALBUMIN 2.3 G/DL (3.2-5.2); ALKALINE PHOSPHATASE 161 U/L (46-116); ALT/SGPT 29 U/L (7.0-40); AST/SGOT 34 U/L (<34); BILIRUBIN,TOTAL 0.2 MG/DL (0.3-1.2); BLOOD UREA NITROGEN 20 MG/DL (9-23); CARBON DIOXIDE LEVEL 29 MMOL/L (20-31); CHLORIDE LEVEL 102 MMOL/L (98-107); CREATININE FOR GFR 0.89 MG/DL (0.55-1.30); GLOMERULAR FILTRATION RATE > 60.0 (>32); GLUCOSE, FASTING 152 MG/DL (74-106); POTASSIUM SERUM 4.5 MMOL/L (3.5-5.1); SODIUM LEVEL 139 MMOL/L (136-145); TOTAL PROTEIN 6.2 G/DL (5.7-8.2)
[2023-04-26 16:05] LABS: ERYTHROCYTE SEDIMENTATION RATE 54 mm/hr (0-30)
== END ==
LOC: M SHH 14:49
PROVIDERS: ATTEND Internal Medicine
DX: D72.829 Elevated white blood cell count, unspecified (principal); N18.31 Chronic kidney disease, stage 3a; I50.31 Acute diastolic (congestive) heart failure

== ENCOUNTER → 2023-05-26 | Outpatient (REF) | payer MEDICARE ==
[~2023-05-26] MED LIST changes: -POTA10CA33 PO; +POTA10CA60 PO
== END ==
LOC: M LAB REF 16:24
PROVIDERS: ATTEND Internal Medicine
DX: M81.0 Age-related osteoporosis without current pathological fracture (principal); M06.9 Rheumatoid arthritis, unspecified

== ENCOUNTER → 2023-06-13 | Outpatient (CLI) | payer MEDICARE | LOC: M RAD 10:57 | PROVIDERS: ATTEND Internal Medicine Pulmonary Disease | DX: C34.32 Malignant neoplasm of lower lobe, left bronchus or lung (principal) ==

== ENCOUNTER → 2023-06-17 | Outpatient (REF) | payer MEDICARE ==
[2023-06-17 14:29] LABS: FERRITIN 77.3 NG/ML (7.3-270.7); PERCENT SATURATION 9.4 % (13.2-45.0)
[2023-06-18 01:12] LABS: C REACTIVE PROTEIN QUANTITATIV 4.5 MG/DL (<1.0)
== END ==
LOC: M LAB REF 12:45
PROVIDERS: ATTEND Internal Medicine
DX: M06.9 Rheumatoid arthritis, unspecified (principal); N18.31 Chronic kidney disease, stage 3a; D50.9 Iron deficiency anemia, unspecified

== ENCOUNTER → 2023-08-16 | Outpatient (REF) | payer MEDICARE | LOC: M LAB REF 16:34 | PROVIDERS: ATTEND Internal Medicine | DX: M06.9 Rheumatoid arthritis, unspecified (principal) ==

== ENCOUNTER → 2023-10-11 | Outpatient (REF) | payer MEDICARE ==
[2023-10-12 13:24] LABS: PERCENT SATURATION 11.2 % (13.2-45.0)
[2023-10-12 13:27] LABS: FERRITIN 98.6 NG/ML (7.3-270.7)
== END ==
LOC: M LAB REF 12:03
PROVIDERS: ATTEND Internal Medicine
DX: D50.9 Iron deficiency anemia, unspecified (principal); N18.31 Chronic kidney disease, stage 3a

== ENCOUNTER → 2023-10-14 | Outpatient (REF) | payer MEDICARE | LOC: M LAB REF 16:11 | PROVIDERS: ATTEND Internal Medicine | DX: I48.0 Paroxysmal atrial fibrillation (principal) ==

== ENCOUNTER → 2023-10-26 | Outpatient (REF) | payer MEDICARE ==
[~2023-10-26] MED LIST changes: -FLUT50SP17 NARES; +FLUTISP NARES
[2023-10-26 17:47] LABS: URIC ACID 7.7 MG/DL (3.1-7.8)
[2023-10-26 17:49] LABS: C REACTIVE PROTEIN QUANTITATIV 1.5 MG/DL (<1.0)
[2023-10-26 17:54] LABS: RHEUMATOID FACTOR QUANT 6.6 IU/ML (<14)
== END ==
LOC: M LAB REF 16:24
PROVIDERS: ATTEND Internal Medicine
DX: M06.9 Rheumatoid arthritis, unspecified (principal); D50.9 Iron deficiency anemia, unspecified; I48.0 Paroxysmal atrial fibrillation

== ENCOUNTER → 2023-10-28 | Outpatient (REF) | payer MEDICARE ==
[2023-10-28 13:51] LABS: BASO # 0.1 10^3/uL (0.0-0.2); BASO % 0.9 % (0.0-1.0); EOS # 0.2 10^3/uL (0.0-0.5); EOS % 1.8 % (0.0-3.0); HEMATOCRIT 38.6 % (36.0-47.0); HEMOGLOBIN 11.9 g/dl (12.0-15.5); LYMPH # 1.3 10^3/uL (1.5-5.0); LYMPH % 14.4 % (24.0-44.0); MEAN CORPUSCULAR HEMOGLOBIN 28.8 pg (27.0-33.0); MEAN CORPUSCULAR HGB CONC 30.8 g/dl (32.0-36.5); MEAN CORPUSCULAR VOLUME 93.5 fl (80.0-96.0); MONO # 0.7 10^3/uL (0.0-0.8); MONO % 7.8 % (2.0-8.0); NEUTROPHILS # 6.8 10^3/uL (1.5-8.5); NEUTROPHILS % 74.8 % (36.0-66.0); PLATELET COUNT, AUTOMATED 297 10^3/uL (150-450); RED BLOOD COUNT 4.13 10^6/uL (4.00-5.40); WHITE BLOOD COUNT 9.1 10^3/uL (4.0-10.0)
== END ==
LOC: M SFHCRHEU 08:52
PROVIDERS: ATTEND Internal Medicine Rheumatology
DX: M06.09 Rheumatoid arthritis without rheumatoid factor, multiple sites (principal); R76.8 Other specified abnormal immunological findings in serum; M15.0 Primary generalized (osteo)arthritis

== ENCOUNTER → 2023-11-21 | Outpatient (REF) | payer MEDICARE ==
[2023-11-21 13:15] LABS: C REACTIVE PROTEIN QUANTITATIV 1.1 MG/DL (<1.0)
[2023-11-21 13:16] LABS: DIGOXIN LEVEL 0.9 NG/ML (0.8-2.0)
== END ==
LOC: M LAB REF 12:25
PROVIDERS: ATTEND Internal Medicine
DX: I48.0 Paroxysmal atrial fibrillation (principal); M06.9 Rheumatoid arthritis, unspecified

== ENCOUNTER → 2023-12-27 | Outpatient (CLI) | payer MEDICARE | LOC: M WHC 09:13 | PROVIDERS: ATTEND Internal Medicine | DX: M81.8 Other osteoporosis without current pathological fracture (principal); M85.88 Other specified disorders of bone density and structure, other site ==

== ENCOUNTER 2024-01-04 15:09 | Inpatient (IN) | payer MEDICARE ==
[~2024-01-04] VITALS: Ht 154.9 cm; Wt 64.3 kg
[2024-01-04 17:15] LABS: VENOUS BASE EXCESS -2.2 (-2.0-2.0); VENOUS HCO3 23.6 MMOL/L (23.0-27.0); VENOUS O2 SATURATION 42.7 % (60.0-80.0); VENOUS PARTIAL PRESSURE CO2 44.4 mmHg (38.0-50.0); VENOUS PARTIAL PRESSURE O2 25.3 mmHg (30.0-50.0); VENOUS PH 7.344 UNITS (7.330-7.430); VENOUS STANDARD HCO3 21.5 MMOL/L
[2024-01-04 17:20] LABS: BASO % 0.1 % (0.0-1.0); EOS % 0.1 % (0.0-3.0); HEMATOCRIT 37.3 % (36.0-47.0); HEMOGLOBIN 11.8 g/dl (12.0-15.5); LYMPH # 0.9 10^3/uL (1.5-5.0); LYMPH % 10.7 % (24.0-44.0); MEAN CORPUSCULAR HEMOGLOBIN 28.1 pg (27.0-33.0); MEAN CORPUSCULAR HGB CONC 31.6 g/dl (32.0-36.5); MEAN CORPUSCULAR VOLUME 88.8 fl (80.0-96.0); MONO # 0.6 10^3/uL (0.0-0.8); MONO % 7.6 % (2.0-8.0); NEUTROPHILS # 6.7 10^3/uL (1.5-8.5); NEUTROPHILS % 81.1 % (36.0-66.0); PLATELET COUNT, AUTOMATED 230 10^3/uL (150-450); WHITE BLOOD COUNT 8.3 10^3/uL (4.0-10.0)
[2024-01-04] MEDS: NS 500 ML IV ONE (17:38)
[2024-01-04 17:42] LABS: INR 1.02; PROTHROMBIN TIME 13.1 SECONDS (12.5-14.5)
[2024-01-04 17:48] LABS: CPK CREATINE PHOSPHOKINASE 91 U/L (34-145)
[2024-01-04 17:49] LABS: ALBUMIN 2.9 G/DL (3.2-5.2); ALKALINE PHOSPHATASE 121 U/L (46-116); ALT/SGPT 36 U/L (7.0-40); AST/SGOT 54 U/L (<34); BILIRUBIN,DIRECT 0.2 MG/DL (<0.4); BILIRUBIN,TOTAL 0.5 MG/DL (0.3-1.2); BLOOD UREA NITROGEN 21 MG/DL (9-23); CALCIUM LEVEL 8.3 MG/DL (8.3-10.6); CARBON DIOXIDE LEVEL 26 MMOL/L (20-31); CHLORIDE LEVEL 101 MMOL/L (98-107); CK-MB VALUE MASS < 1.0 NG/ML (<3.6); CREATININE FOR GFR 1.18 MG/DL (0.55-1.30); GLOMERULAR FILTRATION RATE 46.7 (>32); GLUCOSE, FASTING 117 MG/DL (74-106); MB/CK RELATIVE INDEX 1.09 (< OR =4); POTASSIUM SERUM 3.6 MMOL/L (3.5-5.1); SODIUM LEVEL 134 MMOL/L (136-145); TOTAL PROTEIN 6.4 G/DL (5.7-8.2)
[2024-01-04 17:52] VITALS: O2SAT 88
[2024-01-04] MEDS: IPRATROPIUM 0.5MG/ALBUTEROL 2.5MG INH SOL UD 3ML (DUONEB) NEB PRN (17:52)
[2024-01-04 17:53] LABS: THYROID STIMULATING HORMONE 4.376 uIU/ML (0.55-4.78)
[2024-01-04 18:02] LABS: PROCALCITONIN 0.07 ng/ml
[2024-01-04 18:08] LABS: RSV AMPLIFICATION NEGATIVE (NEGATIVE)
[2024-01-04 18:12] LABS: CK-MB VALUE MASS < 1.0 NG/ML (<3.6)
[2024-01-04 18:13] LABS: CPK CREATINE PHOSPHOKINASE 72 U/L (34-145); MB/CK RELATIVE INDEX 1.38 (< OR =4)
[2024-01-04] MEDS: methylPREDNISolone 125MG 2ML VIAL IV ONE (20:23)
[2024-01-04] MEDS: cefTRIAXone SOD 1 GM in D5W MINI-BAG PLUS 50 ML IV ONE (20:23)
[2024-01-04] MEDS: OSELTAMIVIR PHOSPHATE 75 MG CAP (TAMIFLU) PO ONE (20:23)
[2024-01-04] MEDS: DOXYCYCLINE HYCLATE 100 MG in D5W MINI-BAG PLUS 100 ML IV ONE (21:44)
[2024-01-04] MEDS: ACETAMINOPHEN TAB 650MG DOSE (2X325MG) PO ONE (21:44)
[2024-01-04] MEDS ORDERED: ALBUTEROL SULFATE 2.5MG/0.5ML INH NEB SOLN NEB PRN (23:05)
[2024-01-05] VITALS (7 sets, daily range): BP systolic 112–136; BP diastolic 62–86; TEMP 97.7–98.7; O2SAT 88–97
[2024-01-05] MEDS: IPRATROPIUM 0.5MG/ALBUTEROL 2.5MG INH SOL UD 3ML (DUONEB) NEB SCH (02:00)
[2024-01-05] MEDS: methylPREDNISolone 40MG 1ML VIAL IV SCH (05:36)
[2024-01-05 07:03] LABS: CALCIUM LEVEL 7.9 MG/DL (8.3-10.6); GLOMERULAR FILTRATION RATE 56.5 (>32); POTASSIUM SERUM 3.6 MMOL/L (3.5-5.1)
[2024-01-05] MEDS: OSELTAMIVIR PHOSPHATE 30MG CAPSULE PO SCH ×2 (08:05→21:13)
[2024-01-05] MEDS: HEPARIN SOD (PORCINE) 5000UNITS/ML 1ML VIAL/SYRINGE SC SCH (08:06)
[2024-01-05] MEDS: METOPROLOL TARTRATE 100MG TAB PO ONE (09:11)
[2024-01-05] MEDS ORDERED: SULF500T2 PO (12:41)
[2024-01-05] MEDS ORDERED: FERR325T3 PO (12:41)
[2024-01-05] MEDS ORDERED: DIGO0.123 PO (12:41)
[2024-01-05] MEDS ORDERED: POTA10CA60 PO (12:41)
[2024-01-05] MEDS ORDERED: LISI5TAB11 PO (12:41)
[2024-01-05] MEDS ORDERED: FURO20TA2 PO (12:41)
[2024-01-05] MEDS ORDERED: EZET10TA21 PO (12:41)
[2024-01-05] MEDS ORDERED: HOME MED LIST COMPLETE! XX SCH (12:45)
[2024-01-05] MEDS: DIGOXIN 0.125 MG TAB PO SCH (17:20)
[2024-01-05] MEDS: EZETIMIBE 10MG TABLET (ZETIA) PO SCH (17:20)
[2024-01-05] MEDS: ATORVASTATIN 20 MG TAB PO SCH (17:20)
[2024-01-05] MEDS: PANTOPRAZOLE 40MG TAB (PROTONIX) PO SCH (17:20)
[2024-01-05] MEDS: ASPIRIN 81MG ENTERIC TABLET PO SCH (21:13)
[2024-01-05] MEDS: POTASSIUM CHLORIDE 10MEQ SR TABLET PO SCH (21:13)
[2024-01-06 00:40] VITALS: O2SAT 89
[2024-01-06 01:29] VITALS: BP 111/69; TEMP 97.9; O2SAT 93
[2024-01-06 04:23] VITALS: BP 113/67; TEMP 97; O2SAT 92
[2024-01-06] MEDS: FERROUS SULFATE 325MG TAB PO SCH (07:58)
[2024-01-06] MEDS: predniSONE 20 MG TAB PO SCH (08:00)
[2024-01-06 08:33] LABS: BASO % 0.1 % (0.0-1.0); HEMATOCRIT 32.4 % (36.0-47.0); HEMOGLOBIN 10.2 g/dl (12.0-15.5); LYMPH # 1.1 10^3/uL (1.5-5.0); LYMPH % 9.8 % (24.0-44.0); MEAN CORPUSCULAR HEMOGLOBIN 27.9 pg (27.0-33.0); MEAN CORPUSCULAR HGB CONC 31.5 g/dl (32.0-36.5); MEAN CORPUSCULAR VOLUME 88.8 fl (80.0-96.0); MONO # 0.8 10^3/uL (0.0-0.8); MONO % 6.6 % (2.0-8.0); NEUTROPHILS # 9.7 10^3/uL (1.5-8.5); PLATELET COUNT, AUTOMATED 224 10^3/uL (150-450); RED BLOOD COUNT 3.65 10^6/uL (4.00-5.40); WHITE BLOOD COUNT 11.7 10^3/uL (4.0-10.0)
[2024-01-06 08:40] VITALS: BP 115/66; TEMP 97.9; O2SAT 95
[2024-01-06 09:02] LABS: BLOOD UREA NITROGEN 18 MG/DL (9-23); CALCIUM LEVEL 8.1 MG/DL (8.3-10.6); CARBON DIOXIDE LEVEL 21 MMOL/L (20-31); CHLORIDE LEVEL 105 MMOL/L (98-107); CREATININE FOR GFR 0.88 MG/DL (0.55-1.30); GLOMERULAR FILTRATION RATE > 60.0 (>32); GLUCOSE, FASTING 145 MG/DL (74-106); POTASSIUM SERUM 3.5 MMOL/L (3.5-5.1); SODIUM LEVEL 137 MMOL/L (136-145)
[2024-01-06] MEDS ORDERED: OSEL30CA PO (09:46)
== END 2024-01-06 12:16 | disposition home or self-care (01) | DRG 194 ==
LOC: M ED 15:09 → M ED INP 15:10 → M MSPAV 01-05 00:15 → OBSVTOIN 01-05 16:22
PROVIDERS: ADMIT Internal Medicine; ATTEND Student in an Organized Health Care Education/Training Program
DX: J10.1 Influenza due to other identified influenza virus with other respiratory manifestations (principal); J44.1 Chronic obstructive pulmonary disease with (acute) exacerbation; K21.9 Gastro-esophageal reflux disease without esophagitis; I25.10 Atherosclerotic heart disease of native coronary artery without angina pectoris; I10 Essential (primary) hypertension; I25.2 Old myocardial infarction; Z79.82 Long term (current) use of aspirin; Z79.899 Other long term (current) drug therapy; Z11.52 Encounter for screening for COVID-19; Z85.118 Personal history of other malignant neoplasm of bronchus and lung; Z92.3 Personal history of irradiation

== ENCOUNTER → 2024-03-30 | Outpatient (REF) | payer MEDICARE ==
[~2024-03-30] MED LIST changes: +DIGO0.123 PO; +EZET10TA21 PO; +FERR325T3 PO; +FURO20TA2 PO; +LISI5TAB11 PO; +OSEL30CA PO; -POTA10CA60 PO; +POTA10CA70 PO; +SULF500T2 PO
[2024-03-30 18:02] LABS: BASO # 0.1 10^3/uL (0.0-0.2); BASO % 0.5 % (0.0-1.0); EOS # 0.1 10^3/uL (0.0-0.5); EOS % 0.8 % (0.0-3.0); HEMATOCRIT 37.8 % (36.0-47.0); HEMOGLOBIN 11.8 g/dl (12.0-15.5); LYMPH # 1.8 10^3/uL (1.5-5.0); LYMPH % 13.7 % (24.0-44.0); MEAN CORPUSCULAR HEMOGLOBIN 28.7 pg (27.0-33.0); MEAN CORPUSCULAR HGB CONC 31.2 g/dl (32.0-36.5); MONO # 1.2 10^3/uL (0.0-0.8); MONO % 8.7 % (2.0-8.0); NEUTROPHILS # 10.1 10^3/uL (1.5-8.5); PLATELET COUNT, AUTOMATED 349 10^3/uL (150-450); RED BLOOD COUNT 4.11 10^6/uL (4.00-5.40); WHITE BLOOD COUNT 13.3 10^3/uL (4.0-10.0)
[2024-03-30 18:12] LABS: ERYTHROCYTE SEDIMENTATION RATE 63 mm/hr (0-30)
[2024-03-30 18:24] LABS: C REACTIVE PROTEIN QUANTITATIV 13.3 MG/DL (<1.0)
[2024-03-30 18:26] LABS: ALBUMIN 3.1 G/DL (3.2-5.2); BILIRUBIN,TOTAL 0.4 MG/DL (0.3-1.2); CALCIUM LEVEL 8.8 MG/DL (8.3-10.6); CREATININE FOR GFR 1.16 MG/DL (0.55-1.30); GLOMERULAR FILTRATION RATE 47.6 (>32); POTASSIUM SERUM 4.7 MMOL/L (3.5-5.1); TOTAL PROTEIN 6.3 G/DL (5.7-8.2)
== END ==
LOC: M SFHCADAM 14:36
PROVIDERS: ATTEND Internal Medicine Rheumatology
DX: M06.09 Rheumatoid arthritis without rheumatoid factor, multiple sites (principal); R76.8 Other specified abnormal immunological findings in serum; M15.0 Primary generalized (osteo)arthritis

== ENCOUNTER 2024-04-06 09:33 | Outpatient (REF) | payer MEDICARE | END 2024-04-11 | LOC: CANPREREF → M SFHCRHEU 09:33 → M LABDRWAD 04-11 13:09 | PROVIDERS: ATTEND Internal Medicine Rheumatology | DX: Z53.9 Procedure and treatment not carried out, unspecified reason (principal) ==

== ENCOUNTER → 2024-04-11 | Outpatient (REF) | payer MEDICARE ==
[2024-04-11 14:46] LABS: BASO # 0.1 10^3/uL (0.0-0.2); BASO % 0.7 % (0.0-1.0); EOS # 0.1 10^3/uL (0.0-0.5); EOS % 0.5 % (0.0-3.0); HEMATOCRIT 41.7 % (36.0-47.0); HEMOGLOBIN 12.5 g/dl (12.0-15.5); LYMPH # 1.7 10^3/uL (1.5-5.0); LYMPH % 11.5 % (24.0-44.0); MEAN CORPUSCULAR VOLUME 93.3 fl (80.0-96.0); MONO # 0.5 10^3/uL (0.0-0.8); MONO % 3.6 % (2.0-8.0); NEUTROPHILS # 12.2 10^3/uL (1.5-8.5); NEUTROPHILS % 82.6 % (36.0-66.0); PLATELET COUNT, AUTOMATED 442 10^3/uL (150-450); RED BLOOD COUNT 4.47 10^6/uL (4.00-5.40); WHITE BLOOD COUNT 14.8 10^3/uL (4.0-10.0)
[2024-04-11 15:07] LABS: ERYTHROCYTE SEDIMENTATION RATE 39 mm/hr (0-30)
[2024-04-11 15:14] LABS: C REACTIVE PROTEIN QUANTITATIV 1.1 MG/DL (<1.0)
[2024-04-11 15:16] LABS: ALBUMIN 3.1 G/DL (3.2-5.2); BILIRUBIN,TOTAL 0.4 MG/DL (0.3-1.2); CALCIUM LEVEL 9.4 MG/DL (8.3-10.6); CREATININE FOR GFR 0.99 MG/DL (0.55-1.30); GLOMERULAR FILTRATION RATE 57.2 (>32); POTASSIUM SERUM 4.7 MMOL/L (3.5-5.1); TOTAL PROTEIN 6.8 G/DL (5.7-8.2)
== END ==
LOC: M SFHCRHEU 09:36
PROVIDERS: ATTEND Internal Medicine Rheumatology
DX: M06.09 Rheumatoid arthritis without rheumatoid factor, multiple sites (principal)

== ENCOUNTER → 2024-04-20 | Outpatient (REF) | payer MEDICARE | LOC: M LAB REF 12:58 | PROVIDERS: ATTEND Family Medicine | DX: I48.0 Paroxysmal atrial fibrillation (principal) ==

== ENCOUNTER → 2024-05-07 | Outpatient (REF) | payer MEDICARE | LOC: M SFHCRHEU 08:44 | PROVIDERS: ATTEND Internal Medicine Rheumatology | DX: M06.09 Rheumatoid arthritis without rheumatoid factor, multiple sites (principal) ==

== ENCOUNTER → 2024-05-08 | Outpatient (REF) | payer MEDICARE ==
[2024-05-08 14:27] LABS: HEPATITIS B SURFACE ANTIGEN NEGATIVE (NEGATIVE)
[2024-05-08 14:49] LABS: HEPATITIS C VIRUS ABY INDEX < 0.02 INDEX (<0.8)
== END ==
LOC: M SFHCRHEU 08:04
PROVIDERS: ATTEND Internal Medicine Rheumatology
DX: M06.09 Rheumatoid arthritis without rheumatoid factor, multiple sites (principal); Z11.59 Encounter for screening for other viral diseases

== ENCOUNTER → 2024-05-29 | Outpatient (REF) | payer MEDICARE ==
[2024-05-29 14:28] LABS: BASO # 0.1 10^3/uL (0.0-0.2); BASO % 0.7 % (0.0-1.0); EOS # 0.1 10^3/uL (0.0-0.5); EOS % 1.1 % (0.0-3.0); HEMATOCRIT 41.3 % (36.0-47.0); HEMOGLOBIN 12.4 g/dl (12.0-15.5); LYMPH % 19.2 % (24.0-44.0); MEAN CORPUSCULAR HEMOGLOBIN 28.3 pg (27.0-33.0); MEAN CORPUSCULAR VOLUME 94.3 fl (80.0-96.0); MONO # 0.4 10^3/uL (0.0-0.8); NEUTROPHILS # 7.9 10^3/uL (1.5-8.5); NEUTROPHILS % 74.3 % (36.0-66.0); PLATELET COUNT, AUTOMATED 309 10^3/uL (150-450); RED BLOOD COUNT 4.38 10^6/uL (4.00-5.40); WHITE BLOOD COUNT 10.6 10^3/uL (4.0-10.0)
[2024-05-29 14:35] LABS: ERYTHROCYTE SEDIMENTATION RATE 25 mm/hr (0-30)
[2024-05-29 15:01] LABS: ALBUMIN 3.2 G/DL (3.2-5.2); BILIRUBIN,TOTAL 0.5 MG/DL (0.3-1.2); CALCIUM LEVEL 8.9 MG/DL (8.3-10.6); CREATININE FOR GFR 1.05 MG/DL (0.55-1.30); GLOMERULAR FILTRATION RATE 53.4 (>32); POTASSIUM SERUM 4.3 MMOL/L (3.5-5.1); TOTAL PROTEIN 6.2 G/DL (5.7-8.2)
== END ==
LOC: M SFHCRHEU 08:29
PROVIDERS: ATTEND Internal Medicine Rheumatology
DX: M06.09 Rheumatoid arthritis without rheumatoid factor, multiple sites (principal); R76.8 Other specified abnormal immunological findings in serum; M15.0 Primary generalized (osteo)arthritis

== ENCOUNTER → 2024-07-11 | Outpatient (REF) | payer MEDICARE ==
[2024-07-11 12:49] LABS: BASO # 0.1 10^3/uL (0.0-0.2); BASO % 0.9 % (0.0-1.0); C REACTIVE PROTEIN QUANTITATIV 1.6 MG/DL (<1.0); EOS # 0.1 10^3/uL (0.0-0.5); EOS % 1.7 % (0.0-3.0); HEMATOCRIT 40.2 % (36.0-47.0); HEMOGLOBIN 12.3 g/dl (12.0-15.5); LYMPH # 1.8 10^3/uL (1.5-5.0); LYMPH % 21.6 % (24.0-44.0); MEAN CORPUSCULAR HEMOGLOBIN 29.1 pg (27.0-33.0); MEAN CORPUSCULAR HGB CONC 30.6 g/dl (32.0-36.5); MEAN CORPUSCULAR VOLUME 95.3 fl (80.0-96.0); MONO # 0.7 10^3/uL (0.0-0.8); MONO % 7.8 % (2.0-8.0); NEUTROPHILS # 5.7 10^3/uL (1.5-8.5); NEUTROPHILS % 67.1 % (36.0-66.0); PLATELET COUNT, AUTOMATED 341 10^3/uL (150-450); RED BLOOD COUNT 4.22 10^6/uL (4.00-5.40); WHITE BLOOD COUNT 8.5 10^3/uL (4.0-10.0)
[2024-07-11 12:51] LABS: ALBUMIN 3.4 G/DL (3.2-5.2); BILIRUBIN,TOTAL 0.8 MG/DL (0.3-1.2); CALCIUM LEVEL 9.5 MG/DL (8.3-10.6); CREATININE FOR GFR 1.2 MG/DL (0.55-1.30); GLOMERULAR FILTRATION RATE 45.7 (>32); TOTAL PROTEIN 6.8 G/DL (5.7-8.2)
== END ==
LOC: M SFHCADAM 09:10
PROVIDERS: ATTEND Internal Medicine Rheumatology
DX: M06.09 Rheumatoid arthritis without rheumatoid factor, multiple sites (principal)

== ENCOUNTER → 2024-08-03 | Outpatient (REF) | payer MEDICARE | LOC: M LAB REF 12:55 | PROVIDERS: ATTEND Internal Medicine | DX: I48.0 Paroxysmal atrial fibrillation (principal) ==

== ENCOUNTER → 2024-10-23 | Outpatient (REF) | payer MEDICARE ==
[2024-10-23 14:49] LABS: BASO # 0.1 10^3/uL (0.0-0.2); EOS # 0.2 10^3/uL (0.0-0.5); EOS % 3.2 % (0.0-3.0); HEMOGLOBIN 12.8 g/dl (12.0-15.5); LYMPH # 1.4 10^3/uL (1.5-5.0); LYMPH % 18.8 % (24.0-44.0); MEAN CORPUSCULAR HEMOGLOBIN 31.4 pg (27.0-33.0); MEAN CORPUSCULAR HGB CONC 31.2 g/dl (32.0-36.5); MEAN CORPUSCULAR VOLUME 100.7 fl (80.0-96.0); MONO # 0.5 10^3/uL (0.0-0.8); MONO % 7.2 % (2.0-8.0); NEUTROPHILS % 69.1 % (36.0-66.0); PLATELET COUNT, AUTOMATED 287 10^3/uL (150-450); RED BLOOD COUNT 4.07 10^6/uL (4.00-5.40); WHITE BLOOD COUNT 7.2 10^3/uL (4.0-10.0)
[2024-10-23 14:56] LABS: C REACTIVE PROTEIN QUANTITATIV 0.81 MG/DL (<1.0)
[2024-10-23 14:57] LABS: ALBUMIN 3.1 G/DL (3.2-5.2); BILIRUBIN,TOTAL 0.4 MG/DL (0.3-1.2); CALCIUM LEVEL 9.4 MG/DL (8.3-10.6); CREATININE FOR GFR 1.08 MG/DL (0.55-1.30); GLOMERULAR FILTRATION RATE 51.6 (>32); POTASSIUM SERUM 4.3 MMOL/L (3.5-5.1); TOTAL PROTEIN 6.5 G/DL (5.7-8.2)
== END ==
LOC: M SFHCRHEU 08:49
PROVIDERS: ATTEND Internal Medicine Rheumatology
DX: M06.09 Rheumatoid arthritis without rheumatoid factor, multiple sites (principal)

== ENCOUNTER → 2024-12-05 | Outpatient (REF) | payer MEDICARE ==
[2024-12-05 13:05] LABS: BASO # 0.1 10^3/uL (0.0-0.2); BASO % 0.6 % (0.0-1.0); EOS # 0.1 10^3/uL (0.0-0.5); EOS % 1.2 % (0.0-3.0); HEMATOCRIT 42.2 % (36.0-47.0); HEMOGLOBIN 13.3 g/dl (12.0-15.5); LYMPH # 1.3 10^3/uL (1.5-5.0); LYMPH % 12.1 % (24.0-44.0); MEAN CORPUSCULAR HEMOGLOBIN 31.5 pg (27.0-33.0); MEAN CORPUSCULAR HGB CONC 31.5 g/dl (32.0-36.5); MONO # 0.6 10^3/uL (0.0-0.8); NEUTROPHILS # 8.3 10^3/uL (1.5-8.5); NEUTROPHILS % 79.6 % (36.0-66.0); PLATELET COUNT, AUTOMATED 338 10^3/uL (150-450); RED BLOOD COUNT 4.22 10^6/uL (4.00-5.40); WHITE BLOOD COUNT 10.4 10^3/uL (4.0-10.0)
[2024-12-05 13:12] LABS: ALBUMIN 3.5 G/DL (3.2-5.2); BILIRUBIN,TOTAL 0.7 MG/DL (0.3-1.2); C REACTIVE PROTEIN QUANTITATIV 0.52 MG/DL (<1.0); CALCIUM LEVEL 9.4 MG/DL (8.3-10.6); CREATININE FOR GFR 1.14 MG/DL (0.55-1.30); ERYTHROCYTE SEDIMENTATION RATE 18 mm/hr (0-30); GLOMERULAR FILTRATION RATE 48.5 (>32); TOTAL PROTEIN 7.1 G/DL (5.7-8.2)
== END ==
LOC: M SFHCADAM 09:36
PROVIDERS: ATTEND Internal Medicine Rheumatology
DX: M06.09 Rheumatoid arthritis without rheumatoid factor, multiple sites (principal); R76.8 Other specified abnormal immunological findings in serum; M15.0 Primary generalized (osteo)arthritis

== ENCOUNTER → 2024-12-20 | Outpatient (REF) | payer MEDICARE ==
[2024-12-20 13:14] LABS: BASO # 0.1 10^3/uL (0.0-0.2); BASO % 1.2 % (0.0-1.0); EOS # 0.2 10^3/uL (0.0-0.5); HEMATOCRIT 39.7 % (36.0-47.0); HEMOGLOBIN 12.3 g/dl (12.0-15.5); LYMPH # 1.5 10^3/uL (1.5-5.0); MEAN CORPUSCULAR HEMOGLOBIN 30.9 pg (27.0-33.0); MEAN CORPUSCULAR VOLUME 99.7 fl (80.0-96.0); MONO # 0.4 10^3/uL (0.0-0.8); MONO % 6.4 % (2.0-8.0); NEUTROPHILS # 4.5 10^3/uL (1.5-8.5); NEUTROPHILS % 67.1 % (36.0-66.0); PLATELET COUNT, AUTOMATED 301 10^3/uL (150-450); RED BLOOD COUNT 3.98 10^6/uL (4.00-5.40); WHITE BLOOD COUNT 6.7 10^3/uL (4.0-10.0)
[2024-12-20 13:15] LABS: APPEARANCE, URINE TURBID (CLEAR); BACTERIA, URINE AUTO 3+ (NEGATIVE); BILIRUBIN, URINE AUTO NEGATIVE (NEGATIVE); BLOOD, URINE BLOOD 1+ (NEGATIVE); COLOR, URINE YELLOW (YELLOW); GLUCOSE, URINE (UA) AUTO NEGATIVE (NEGATIVE); KETONE, URINE AUTO NEGATIVE (NEGATIVE); LEUKOCYTE ESTERASE, URINE AUTO 3+ (NEGATIVE); MUCUS, URINE SMALL (NEGATIVE); NITRITE, URINE AUTO NEGATIVE (NEGATIVE); PROTEIN, URINE AUTO 2+ mg/dL (NEGATIVE); RBC, URINE AUTO 13 /HPF (0-3); SPECIFIC GRAVITY URINE AUTO 1.021 (1.002-1.035); SQUAMOUS EPITHELIAL CELL UR AU 1 /HPF (0-6); UROBILINOGEN, URINE AUTO 0.2 mg/dL (0.0-2.0); WBC, URINE AUTO TNTC /HPF (0-3)
[2024-12-20 13:43] LABS: ALBUMIN 3.3 G/DL (3.2-5.2); ALKALINE PHOSPHATASE 146 U/L (35-104); ALT/SGPT 31 U/L (7.0-40); AST/SGOT 32 U/L (<34); BILIRUBIN,TOTAL 0.5 MG/DL (0.3-1.2); BLOOD UREA NITROGEN 24 MG/DL (9-23); CALCIUM LEVEL 8.8 MG/DL (8.3-10.6); CARBON DIOXIDE LEVEL 27 MMOL/L (20-31); CHLORIDE LEVEL 106 MMOL/L (98-107); CHOLESTEROL LEVEL 158 MG/DL (<200); CHOLESTEROL RISK RATIO 4.46 (<5); CPK CREATINE PHOSPHOKINASE 57 U/L (34-145); CREATININE FOR GFR 1.05 MG/DL (0.55-1.30); GLOMERULAR FILTRATION RATE 53.3 (>32); GLUCOSE, FASTING 97 MG/DL (74-106); HDL CHOLESTEROL 35.4 MG/DL (>40); MAGNESIUM LEVEL 2.2 MG/DL (1.8-2.4); NON-HDL-C 122.6 MG/DL; POTASSIUM SERUM 4.2 MMOL/L (3.5-5.1); SODIUM LEVEL 142 MMOL/L (136-145); TOTAL PROTEIN 6.6 G/DL (5.7-8.2); TRIGLYCERIDES LEVEL 440 MG/DL (<150)
[2024-12-20 13:44] LABS: THYROID STIMULATING HORMONE 4.042 uIU/ML (0.55-4.78)
== END ==
LOC: M LABDRWAD 12:21
PROVIDERS: ATTEND Internal Medicine
DX: I10 Essential (primary) hypertension (principal); E78.00 Pure hypercholesterolemia, unspecified; E83.42 Hypomagnesemia

== ENCOUNTER → 2024-12-20 | Outpatient (REF) | payer MEDICARE ==
[2024-12-20 13:40] LABS: ALBUMIN 3.3 G/DL (3.2-5.2); BILIRUBIN,DIRECT 0.1 MG/DL (<0.4); BILIRUBIN,TOTAL 0.5 MG/DL (0.3-1.2); TOTAL PROTEIN 6.6 G/DL (5.7-8.2)
== END ==
LOC: M LABDRWAD 12:23
PROVIDERS: ATTEND Internal Medicine Rheumatology
DX: M06.09 Rheumatoid arthritis without rheumatoid factor, multiple sites (principal)

== ENCOUNTER → 2025-01-03 | Outpatient (REF) | payer MEDICARE ==
[2025-01-03 15:16] LABS: ALBUMIN 3.3 G/DL (3.2-5.2); BILIRUBIN,TOTAL 0.5 MG/DL (0.3-1.2); C REACTIVE PROTEIN QUANTITATIV 0.7 MG/DL (<1.0); CALCIUM LEVEL 9.1 MG/DL (8.3-10.6); CREATININE FOR GFR 1.08 MG/DL (0.55-1.30); GLOMERULAR FILTRATION RATE 51.6 (>32); TOTAL PROTEIN 6.6 G/DL (5.7-8.2)
== END ==
LOC: M SFHCADAM 08:09
PROVIDERS: ATTEND Internal Medicine Rheumatology
DX: M06.09 Rheumatoid arthritis without rheumatoid factor, multiple sites (principal)

== ENCOUNTER → 2025-01-10 | Outpatient (REF) | payer MEDICARE ==
[2025-01-10 13:42] LABS: APPEARANCE, URINE CLOUDY (CLEAR); BACTERIA, URINE AUTO 1+ (NEGATIVE); BILIRUBIN, URINE AUTO NEGATIVE (NEGATIVE); BLOOD, URINE BLOOD NEGATIVE (NEGATIVE); COLOR, URINE YELLOW (YELLOW); GLUCOSE, URINE (UA) AUTO NEGATIVE (NEGATIVE); KETONE, URINE AUTO NEGATIVE (NEGATIVE); LEUKOCYTE ESTERASE, URINE AUTO 3+ (NEGATIVE); NITRITE, URINE AUTO NEGATIVE (NEGATIVE); PROTEIN, URINE AUTO 2+ mg/dL (NEGATIVE); RBC, URINE AUTO 21 /HPF (0-3); SPECIFIC GRAVITY URINE AUTO 1.021 (1.002-1.035); SQUAMOUS EPITHELIAL CELL UR AU 3 /HPF (0-6); TRANSITIONAL EPITHELIAL AUTO 7 /HPF; UROBILINOGEN, URINE AUTO 0.2 mg/dL (0.0-2.0); WBC, URINE AUTO TNTC /HPF (0-3)
== END ==
LOC: M LABDRWAD 12:47
PROVIDERS: ATTEND Internal Medicine
DX: N28.1 Cyst of kidney, acquired (principal); R31.9 Hematuria, unspecified

== ENCOUNTER → 2025-01-29 | Outpatient (REF) | payer MEDICARE ==
[2025-01-29 14:20] LABS: BASO # 0.1 10^3/uL (0.0-0.2); BASO % 0.9 % (0.0-1.0); EOS # 0.2 10^3/uL (0.0-0.5); EOS % 2.3 % (0.0-3.0); HEMATOCRIT 42.7 % (36.0-47.0); HEMOGLOBIN 13.2 g/dl (12.0-15.5); LYMPH # 1.8 10^3/uL (1.5-5.0); LYMPH % 16.8 % (24.0-44.0); MEAN CORPUSCULAR HEMOGLOBIN 30.8 pg (27.0-33.0); MEAN CORPUSCULAR HGB CONC 30.9 g/dl (32.0-36.5); MEAN CORPUSCULAR VOLUME 99.5 fl (80.0-96.0); MONO # 0.8 10^3/uL (0.0-0.8); MONO % 7.2 % (2.0-8.0); NEUTROPHILS # 7.5 10^3/uL (1.5-8.5); NEUTROPHILS % 72.5 % (36.0-66.0); PLATELET COUNT, AUTOMATED 303 10^3/uL (150-450); RED BLOOD COUNT 4.29 10^6/uL (4.00-5.40); WHITE BLOOD COUNT 10.4 10^3/uL (4.0-10.0)
[2025-01-29 14:25] LABS: ERYTHROCYTE SEDIMENTATION RATE 29 mm/hr (0-30)
[2025-01-29 14:26] LABS: C REACTIVE PROTEIN QUANTITATIV 0.9 MG/DL (<1.0)
[2025-01-29 14:27] LABS: ALBUMIN 3.3 G/DL (3.2-5.2); BILIRUBIN,TOTAL 0.5 MG/DL (0.3-1.2); CALCIUM LEVEL 8.8 MG/DL (8.3-10.6); CREATININE FOR GFR 1.08 MG/DL (0.55-1.30); GLOMERULAR FILTRATION RATE 51.6 (>32); POTASSIUM SERUM 4.7 MMOL/L (3.5-5.1); TOTAL PROTEIN 6.8 G/DL (5.7-8.2)
== END ==
LOC: M SFHCRHEU 08:42
PROVIDERS: ATTEND Internal Medicine Rheumatology
DX: M06.09 Rheumatoid arthritis without rheumatoid factor, multiple sites (principal)

== ENCOUNTER → 2025-02-15 | Outpatient (REF) | payer MEDICARE ==
[2025-02-15 13:49] LABS: BASO # 0.1 10^3/uL (0.0-0.2); BASO % 1.1 % (0.0-1.0); EOS # 0.2 10^3/uL (0.0-0.5); EOS % 2.6 % (0.0-3.0); HEMATOCRIT 42.3 % (36.0-47.0); HEMOGLOBIN 13.2 g/dl (12.0-15.5); LYMPH # 1.6 10^3/uL (1.5-5.0); LYMPH % 22.9 % (24.0-44.0); MEAN CORPUSCULAR HEMOGLOBIN 30.3 pg (27.0-33.0); MEAN CORPUSCULAR HGB CONC 31.2 g/dl (32.0-36.5); MEAN CORPUSCULAR VOLUME 97.2 fl (80.0-96.0); MONO # 0.7 10^3/uL (0.0-0.8); MONO % 9.3 % (2.0-8.0); NEUTROPHILS # 4.5 10^3/uL (1.5-8.5); NEUTROPHILS % 63.8 % (36.0-66.0); PLATELET COUNT, AUTOMATED 333 10^3/uL (150-450); RED BLOOD COUNT 4.35 10^6/uL (4.00-5.40)
[2025-02-15 14:12] LABS: ALBUMIN 3.4 G/DL (3.2-5.2); BILIRUBIN,TOTAL 0.6 MG/DL (0.3-1.2); C REACTIVE PROTEIN QUANTITATIV 1.53 MG/DL (<1.0); CALCIUM LEVEL 8.9 MG/DL (8.3-10.6); CREATININE FOR GFR 1.19 MG/DL (0.55-1.30); GLOMERULAR FILTRATION RATE 45.4 (>32); POTASSIUM SERUM 4.3 MMOL/L (3.5-5.1); TOTAL PROTEIN 6.9 G/DL (5.7-8.2)
== END ==
LOC: M SFHCADAM 07:54
PROVIDERS: ATTEND Internal Medicine Rheumatology
DX: M06.09 Rheumatoid arthritis without rheumatoid factor, multiple sites (principal)

== ENCOUNTER → 2025-06-25 | Outpatient (REF) | payer MEDICARE ==
[~2025-06-25] MED LIST changes: +AZIT500T5 PO; +BIOT10002 PO; +CEFD300CAP PO; +CHOL50002 PO; +LISI40TA10 PO; -LISI40TA4 PO; +THERTAB52 PO; +VITAE40CA PO
[2025-06-25 14:02] LABS: BASO # 0.1 10^3/uL (0.0-0.2); BASO % 1.2 % (0.0-1.0); EOS # 0.2 10^3/uL (0.0-0.5); EOS % 1.9 % (0.0-3.0); LYMPH # 2.0 10^3/uL (1.5-5.0); LYMPH % 21.3 % (24.0-44.0); MONO # 0.7 10^3/uL (0.0-0.8); MONO % 7.6 % (2.0-8.0); NEUTROPHILS # 6.3 10^3/uL (1.5-8.5); NEUTROPHILS % 67.6 % (36.0-66.0); PLATELET COUNT, AUTOMATED 333 10^3/uL (150-450)
[2025-06-25 14:06] LABS: C REACTIVE PROTEIN QUANTITATIV 1.28 MG/DL (<1.0)
[2025-06-25 14:08] LABS: ALT/SGPT 30.0 U/L (7.0-40); AST/SGOT 38.0 U/L (<34); CALCIUM LEVEL 8.8 MG/DL (8.3-10.6); CARBON DIOXIDE LEVEL 27.0 MMOL/L (20-31); CHLORIDE LEVEL 103.0 MMOL/L (98-107); CREATININE FOR GFR 1.05 MG/DL (0.55-1.30); GLOMERULAR FILTRATION RATE 52.7 (>32); POTASSIUM SERUM 4.6 MMOL/L (3.5-5.1); SODIUM LEVEL 142.0 MMOL/L (136-145)
[2025-06-25 14:11] LABS: ERYTHROCYTE SEDIMENTATION RATE 38 mm/hr (0-30)
== END ==
LOC: M SFHCADAM 08:49
PROVIDERS: ATTEND Internal Medicine Rheumatology
DX: M06.09 Rheumatoid arthritis without rheumatoid factor, multiple sites (principal)

== ENCOUNTER → 2025-06-28 | Outpatient (CLI) | payer MEDICARE | LOC: M RAD 06:34 | PROVIDERS: ATTEND Internal Medicine Pulmonary Disease | DX: R91.8 Other nonspecific abnormal finding of lung field (principal); I70.0 Atherosclerosis of aorta; K76.89 Other specified diseases of liver ==

== ENCOUNTER → 2025-08-01 | Outpatient (REF) | payer MEDICARE ==
[~2025-08-01] MED LIST changes: -EZET10TA21 PO; +EZET10TA57 PO
== END ==
LOC: M SFHCRHEU 09:25
PROVIDERS: ATTEND Internal Medicine Rheumatology
DX: Z53.8 Procedure and treatment not carried out for other reasons (principal)